=== PATIENT | female | born 1945 | race Caucasian/White ===

== ENCOUNTER 2024-02-22 09:03 | Outpatient (RCR) | payer SELFPAY | END 2024-03-16 23:59 | disposition home or self-care (01) | LOC: HEMC 09:03 | PROVIDERS: Visit Provider Internal Medicine Hematology & Oncology | DX: I82.409 Acute embolism and thrombosis of unspecified deep veins of unspecified lower extremity (principal); Z79.01 Long term (current) use of anticoagulants; K21.9 Gastro-esophageal reflux disease without esophagitis | CPT/HCPCS: 36415; 81241; 85210; G0463 ==

== ENCOUNTER 2024-06-18 07:23 | Outpatient (OUT) | payer MEDICARE, SELFPAY ==
--- OUTSIDE RECORDS SUMMARY | 2024-06-18 07:27 | XMS_ITS | CCD ---
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 Name Role Phone Caio Brown Unavailable GISEL, DR HARINI Lee Admitting Unavailable WEST, DR HARINI Lee Attending Unavailable WEST, DR HARINI Lee Consulting Unavailable BREWSTER, DR IRIS Britt Primary Care Unavailable [facility], FARNAZ Malave Attending Unavailable HIGHLANDER, FARNAZ Malave Admitting Unavailable RUSLAN ., FRANK RUGGIERO Attending Unavailable RUSLAN ., FRANK URGGIERO Admitting Unavailable BREWSTER, DR IRIS Britt Primary Care Unavailable WEST, DR HARINI Lee Admitting Unavailable WEST, DR HARINI Lee Attending Unavailable WEST, DR HARINI Lee Consulting Unavailable WEST, DR HARINI Lee Consulting Unavailable BREWSTER, DR IRIS Britt Primary Care Unavailable WEST, DR HARINI Lee Attending Unavailable WEST, DR HARINI Lee Admitting Unavailable WEST, DR HARINI Lee Admitting Unavailable WEST, DR HARINI Lee Attending Unavailable WEST, DR HARINI Lee Consulting Unavailable ZIEBER, DR ASHISH Vega Consulting Unavailable BREWSTER, DR IRIS Britt Primary Care Unavailable HIGHLANDER, FARNAZ Maalve Attending Unavailable HIGHLANDER, FARNAZ Malave Admitting Unavailable WEST, DR HARINI Lee Admitting Unavailable WEST, DR HARINI Lee Attending Unavailable WEST, DR HARINI Lee Consulting Unavailable ZIEBER, DR ASHISH Vega Consulting Unavailable BREWSTER, DR IRIS Britt Attending Unavailable BREWSTER, DR IRIS Britt Admitting Unavailable WEST, DR HARINI Lee Consulting Unavailable BREWSTER, DR IRIS Britt Consulting Unavailable WEST, DR HARINI Lee Consulting Unavailable WEST, DR HARINI Lee Attending Unavailable WEST, DR HARINI Lee Admitting Unavailable WEST, DR HARINI Lee Consulting Unavailable WEST, DR HARINI Lee Attending Unavailable WEST, DR HARINI Lee Admitting Unavailable WEST, DR HARINI Lee Consulting Unavailable WEST, DR HARINI Lee Attending Unavailable WEST, DR HARINI Lee Admitting Unavailable WEST, DR HARINI Lee Admitting Unavailable WEST, DR HARINI Lee Attending Unavailable WEST, DR HARINI Lee Consulting Unavailable WEST, DR HARINI Lee Admitting Unavailable WEST, DR HARINI Lee Attending Unavailable WEST, DR HARINI Lee Consulting Unavailable WEST, DR HARINI Lee Admitting Unavailable WEST, DR HARINI Lee Attending Unavailable WEST, DR HARINI Lee Consulting Unavailable WEST, DR HARINI Lee Admitting Unavailable WEST, DR HARINI Lee Attending Unavailable WEST, DR HARINI Lee Consulting Unavailable NICOLAEB, DR ASHISH Vega Consulting Unavailable WEST, DR HARINI Lee Consulting Unavailable BREWSTER, DR IRIS Britt Primary Care Unavailable WEST, DR HARINI Lee Attending Unavailable WEST, DR HARINI Lee Admitting Unavailable ZIEBCONNIE, DR ASHISH Vega Consulting Unavailable BREWSTER, DR IRIS Britt Admitting Unavailable BREWSTER, DR IRIS Britt Attending Unavailable WEST, DR HARINI Lee Consulting Unavailable BREWSTER, DR IRIS Britt Consulting Unavailable ZIEBER, DR ASHISH Vega Consulting Unavailable BREWSTER, DR IRIS Britt Primary Care Unavailable BREWSTER, DR IRIS Britt Attending Unavailable BREWSTER, DR IRIS Britt Admitting Unavailable BREWSTER, DR IRIS Britt Consulting Unavailable [facility] FARNAZ Malave Consulting Unavailable BREWSTER, DR IRIS Britt Primary Care Unavailable [facility], FARNAZ Malave Attending Unavailable [facility] FAR[facility] Malave Admitting Unavailable WEST, DR HARINI Lee Admitting Unavailable WEST, DR HARINI Lee Attending Unavailable WEST, DR HARINI Lee Consulting Unavailable [facility], DR TADEO Gonzalez Consulting Unavailable BREWSTER, DR IRIS Britt Primary Care Unavailable [facility], FARNAZ Malave Attending Unavailable [facility], FARNAZ Malave Admitting Unavailable Brewster, Iris Unavailable Braxton Griffin Unavailable PRASHANTH COOMBS Attending Unavailable Iris Brewster MD Primary Care Provider Jay ODDonavan Unavailable Allergies Allergy Classification Reported Allergen(s) Allergy Type Date of Onset Reaction(s) Facility (1 source) patient allergy list reviewed by nurse or physicia Propensity to adverse reactions 4 Comment:Done Procyrion Other (1 source) Allergies Reconciled Propensity to adverse reactions Unknown Procyrion Other Medications Current Medications Medication Drug Class(es) Dates Sig (Normalized) Sig (Original) acetaminophen 500 mg oral capsule (4 sources) take 1 capsule by mouth every six hours Acetaminophen 500 MG 1 capsule as needed Orally every 6 hrs Active aspirin 81 mg oral tablet (1 source) Platelet Aggregation Inhibitor, Nonsteroidal Anti-inflammatory Drug Start: 06-21-2022 Aspir-Low 81MG Aspir-Low( 81MG Oral as needed ) Active -Hx Entry Oral as needed for 0 *Pick strength-form from [employer] for eRX* Jun, Active ketorolac tromethamine 5 mg/ml ophthalmic solution (1 source) Nonsteroidal Anti-inflammatory Drug, Cyclooxygenase Inhibitor Start: 05-31-2024 End: 06-30-2024 take 1 drop(s) into the eye(s) in the morning ketorolac (Acular) 0.5 % ophthalmic solution Indications: Age-related nuclear cataract of both eyes Administer 1 drop into affected eye(s) in the morning and 1 drop before bedtime. 5 mL 1 05/31/2024 06/30/2024 Active omeprazole 20 mg delayed release oral capsule (14 sources) Proton Pump Inhibitor Start: 05-14-2024 take 1 capsule by mouth once daily omeprazole (PriLOSEC) [address] capsule Take 20 mg by mouth Daily 05/14/2024 Active Start: 02-14-2024 take 20 mg by mouth once daily Omeprazole Active 20 MG PO Daily February 14, 2024 12:00am Start: 10-30-2023 End: 02-14-2024 Omeprazole Discontinued 0 .R OUTE .COMPLEX February 14, 2024 12:20pm February 14, 2024 12:40pm TAKE 1 CAPSULE BY MOUTH EVERY DAY 30 MINUTES BEFORE MORNING MEAL FOR 90 DAYS Start: 10-30-2023 End: 10-30-2023 take 40 mg by mouth once daily Omeprazole Discontinued 40 MG PO Daily October 30, 2023 12:00am October 30, 2023 12:07pm Start: 07-12-2022 take 1 capsule by [facility] once daily Omeprazole 40 MG omeprazole 40mg, 1 (one) Capsul Capsu Capsule daily # 90, 07/12/2022, No Refill. Active Oral daily for 0 Jun, Active prednisoLONE acetate 10 mg/ml ophthalmic suspension (1 source) Corticosteroid Start: 05-31-2024 End: 06-14-2024 prednisoLONE acetate (Pred-Forte) 1 % ophthalmic suspension Indications: Age-related nuclear cataract of both eyes Administer 1 drop into affected eye(s) in the morning and 1 drop at noon and 1 drop in the evening and 1 drop before bedtime. Do all this for 14 days. 5 mL 1 05/31/2024 06/14/2024 Active predniSONE 20 mg oral tablet (1 source) Start: 06-08-2022 take 1 tablet by mouth once daily Prednisone 20 MG predniSONE 20mg, 1 (one) Tablet Tablet Tablet daily # 5, 06/08/2022, No Refill. Active Oral daily for 0 May, Active Completed/Discontinued Medications Medication Drug Class(es) Dates Sig (Normalized) Sig (Original) apixaban 5 mg oral tablet (8 sources) Factor Xa Inhibitor Start: 02-26-2024 End: 02-26-2024 take 1 tablet by mouth twice daily Apixaban (Eliquis) 5 mg tablet Discontinued 0 .ROUTE .COMPLEX 180 February 26, 2024 11:43am February 26, 2024 4:21pm TAKE 1 TABLET BY MOUTH TWICE A DAY FOR 90 DAYS Start: 2024 End: 02-26-2024 take 1 tablet by mouth twice daily Apixaban (Eliquis) 5 mg tablet Discontinued 1 TAB PO Twice daily 2024 12:00am February 26, 2024 11:43am [employer] tablet Orally Twice a day; Note: Source Status: Refill; Refills: 4; Qty: 180 Tablet; Provider: Suzanne Britt Start: 06-08-2022 take 1 tablet by korey th twice daily Eliquis 5mg Eliquis 5mg, 1 (one) Tablet Tablet Tablet T Tablet two times daily # 60, 06/08/2022, Ref. x4. Active oral two times daily for 0 *Pick strength-form from [employer] for eRX* May, Active ibuprofen 200 mg oral tablet (6 sources) Nonsteroidal Anti-inflammatory Drug Start: 2024 End: 02-14-2024 take 200 mg by mouth every six hours Ibuprofen Discontinued 200 MG PO Every 6 hours 2024 12:00am February 14, 2024 12:11pm Ibuprofen Active ofloxacin 3 mg/ml ophthalmic solution (1 source) Quinolone Antimicrobial Start: 05-31-2024 End: 06-01-2024 take 1 drop(s) into the eye(s) five times daily ofloxacin (Ocuflox) 0.3 % ophthalmic solution Indications: Age-related nuclear cataract of both eyes Administer 1 drop into affected eye(s) 5 (five) times a day for 1 day Starting 1 day before surgery, continue after surgery as directed 5 mL 1 05/31/2024 06/01/2024 triamcinolone acetonide 40 mg/ml injectable suspension (4 sources) Corticosteroid Start: 06-27-2022 Kenalog-40 Jun, 40 mg Start: 06-27-2022 Problems Active Problems Problem Classification Problem Date Documented Da te Episodic/Chronic Acquired foot deformities (1 source) Flat foot [pes planus] (acquired), right foot; Translations: [FLAT FOOT PES PLANUS ACQ RT FOOT] Onset: 3 Episodic Allergic reactions (1 source) Allergic contact dermatitis due to plants, except food; Translations: [Allergic contact dermatitis due to plants, except food] Episodic Cataract (3 sources) Bilateral age-related nuclear cataracts; Translations: [Age-related nuclear cataract, bilateral] Onset: 4 05-31-2024 Chronic Chronic ulcer of skin (6 sources) Non-pressure chronic ulcer of right ankle with fat layer exposed; Translations: [Non-pressure chronic ulcer of unspecified part of right lower leg limited to breakdown of skin] Onset: 3 Chronic Esophageal disorders (5 sources) Gastro-esophageal reflux disease without esophagitis; Translations: [Gastroesophageal reflux disease without esophagitis] Onset: 4 02-14-2024 Chronic Osteoarthritis (5 sources) Osteoarthritis of left knee joint; Translations: [Unilateral primary osteoarthritis, left knee] Chronic Other bone disease and musculoskeletal deformities (1 source) Disorder of bone, unspecified; Translations: [DISORDER OF BONE UNSPECIFIED] Onset: 3 Episodic Other circulatory disease (1 source) Elevated blood-pressure reading without diagnosis of hypertension; Translations: [Elevated blood-pressure reading, without diagnosis of hypertension] Episodic Other connective tissue disease (5 sources) Pain in right leg; Translations: [PAIN IN RIGHT LEG] Onset: 2 Episodic Other connective tissue disease (1 source) Pain in right lower limb; Translations: [Pain in right leg] Episodic Other nervous system disorders (1 source) Paresthesia of skin; Translations: [PARESTHESIA OF SKIN] Onset: 3 Episodic Other nervous system disorders (1 source) Paresthesia; Translations: [Paresthesia of skin] Episodic Other nervous system disorders (1 source) Altered sensation of skin; Translations: [Disturbance of skin sensation] Episodic Other non-traumatic joint disorders (1 source) Other specified arthritis, unspecified site; Translations: [OTHER SPECIFIED ARTHRITIS UNS SITE] Onset: 3 Chronic Other non-traumatic joint disorders (4 sources) Pain in left knee; Translations: [PAIN IN LEFT KNEE] Onset: 2 Episodic Other non-traumatic joint disorders (2 sources) Arthralgia of the lower leg; Translations: [Pain in right knee] Onset: 5 Episodic Peripheral and visceral atherosclerosis (5 sources) Peripheral vascular disease, unspecified; Translations: [PERIPHERAL VASCULAR DISEASE UNS] Onset: 3 Chronic Phlebitis; thrombophlebitis and thromboembolism (15 sources) Acute embolism and thrombosis of unspecified deep veins of right lower extremity; Translations: [Phlebitis and thrombophlebitis of superficial vessels of right lower extremity] Onset: 2 Episodic Residual codes; unclassified (1 source) Tobacco user; Translations: [Tobacco use] Episodic Rheumatoid arthritis and related disease (1 source) Rheumatoid arthritis, unspecified; Translations: [RHEUMATOID ARTHRITIS UNSPECIFIED] Onset: 3 Chronic Unclassified (1 source) Acute embolism and thrombosis of right calf muscular vein; Translations: [ACUTE EMBO AND THROMB RT CALF MUSC VN] Onset: 2 Varicose veins of lower extremity (9 sources) Asymptomatic varicose veins of unspecified lower extremity; Translations: [Varicose veins of bilateral lower extremities with pain] Onset: 4 Episodic Past or Other Problems Problem Classification Problem Date Documented Da te Episodic/Chronic Malaise and fatigue (1 source) Fatigue; Translations: [Other fatigue] Onset: 01-01-2018 Episodic Other aftercare (5 sources) Encounter for surgical aftercare following surgery on the circulatory system; Translations: [ENC SURG AFTRCARE FLW SURG CIRC SYS] Onset: 02-22-2022 Episodic Other bone disease and musculoskeletal deformities (1 source) Bone density finding; Translations: [Other specified disorders of bone density and structure, unspecified site] Onset: 10-22-2013 Episodic Other screening for suspected conditions (not mental disorders or infectious disease) (1 source) Mammography abnormal; Translations: [Unspecified abnormal mammogram] Onset: 09-16-2015 Episodic Other skin disorders (1 source) Disorder of skin and/or subcutaneous tissue; Translations: [Unspecified disorder of skin and subcutaneous tissue] Onset: 01-01-2018 Episodic Other skin disorders (1 source) Asteatosis cutis; Translations: [Xerosis cutis] Onset: 01-01-2018 Episodic Other skin disorders (1 source) Actinic keratosis; Translations: [Actinic keratosis] Onset: 01-01-2018 Episodic Other upper respiratory infections (1 source) Acute maxillary sinusitis; Translations: [Acute recurrent maxillary sinusitis] Onset: 12-06-2018 Episodic Results Test Name Value Interpretation Reference Range Facility US Eye+Orbit - bilateralon 1 07-31-2023 Diagnosis: Cataract both eyes (OU) Testing Indication: Performed for preop measurements in the determination of an intraocular lens (IOL) for both eyes (OU) Test Reliability: Good quality both eyes (OU) Interpretation: Good measurements for intraocular lens (IOL) calculation purposes. Calculation made for both eyes (OU). [facility] Radiology Study observation (narrative) [facility] VC CONSULT FOLLOWUPon 2021 VC CONSULT FOLLOWUP Patient: AGATA NG Exam Date: 06/21/2022 : 1945 Gender:F Ordering : DR HARINI BATRES M.D. Admission #: [id number] Family : Order #: [id number] CLICK HERE TO VIEW EXAM RADIOLOGY REPORT PROCEDURE: VEIN CENTER CONSULTATION FOLLOWUP VEIN CENTER - OFFICE VISIT FOLLOW UP COMPARISON: VC CONSULT FOLLOWUP, 05/31/2022. VC CONSULT FOLLOWUP, 05/10/2022. PROGRESS NOTES: The patient reports no significant pain following micro foam chemical ablation of the right leg but does complain of a developing wound along the medial right ankle and lateral right distal lower leg which started approximately 2 weeks ago. The patient has worn her compression stocking. The patient has followed our recommendations to walk 20-30 minutes once or twice per day since the procedure. Physical exam demonstrates multiple scattered thrombosed varicose veins. Extensive reticular and spider veins. There is a 3 x 1 cm ulceration identified in the medial right ankle with a larger 4 cm area of erythema. There is complete eschar covering the ulceration. There is a 2nd smaller 1 cm ulcer identified along the distal lateral right lower leg. These lesions are not warm to the touch and do not appear to be infected Review of the ultrasound performed the same day demonstrates occlusive thrombus extending throughout the treated no deep vein thrombus. No significant residual incompetent varicose veins. The patient expressed a desire to proceed with treatment of reticular and spider veins. I discussed the ulcerations with the patient. These likely are the result of micro foam chemical ablation. Our office set up a follow-up with the wound clinic which we will follow these wounds until they are fully healed. We will defer her treatments for several months as she continues to heal. The patient was asked to call our office with any difficulties or evidence of infection. IMPRESSION: 1. Successful ablation of incompetent right leg varicose veins 2. Persistent bilateral reticular and spider veins 3. Two active ulcers on the right leg likely related to micro foam chemical ablation PLAN: 1. Follow-up with wound clinic for ulcers 2. Injection sclerotherapy of reticular and spider veins once ulcers are successfully healed Nurse notes, history and physical were reviewed and confirmed, see attached forms. The nurse was present throughout the physical exam and consultation Dictated by: Harini Batres MD on 06/21/2022 at 14:23 Approved by: Hraini Batres MD on 06/21/2022 at 14:[address] [facility] VC EXT VENOUS RT LIMITEDon 1 08-22-2021 VC EXT VENOUS RT LIMITED Patient: AGATA NG Exam Date: 06/21/2022 : 1945 Gender:F Ordering : DR HARINI BATRES M.D. Admission #: [id number] Family : Order #: [id number] CLICK HERE TO VIEW EXAM RADIOLOGY REPORT PROCEDURE: VEIN CENTER EXTREMITY VENOUS RIGHT LIMITED COMPARISON: VC COMP CONSULTATION, 01/26/2022. VC EXT VENOUS RT LIMITED, 05/31/2022. VC EXT VENOUS RT LIMITED, 05/10/2022. INDICATIONS: Phlebitis of superficial veins of lower extremity TECHNIQUE: Lower extremity baez scale and Duplex Doppler evaluation of the deep venous system from the inguinal ligament through the calf veins. FINDINGS: REGION: Right lower extremity. THROMBI: Negative for DVT. Varithena induced thrombus visualized at dist/ant thigh and mid/med calf. COMPRESSIBILITY: Non-compressible segments corresponding to thrombus. FLOW: Absent flow corresponding to thrombus *Exam performed in accordance with [facility] practice guidelines- Peripheral venous ultrasound, October 10, 2009. CONCLUSION: Post ablation occlusion of treated right leg incompetent varicose veins Dictated by: Harini Batres MD on 06/21/2022 at 14:14 Approved by: Harini Batres MD on 06/21/2022 at 14:[address] [facility] VC INJ FOAM SCLERO W US MLTI on 06-14-2022 VC INJ FOAM SCLERO W US MLTI Patient: AGATA NG Exam Date: 06/14/2022 : 1945 Gender:F Ordering : DR HARINI BATRES M.D. Admission #: [id number] Family : Order #: [id number] CLICK HERE TO VIEW EXAM RADIOLOGY REPORT PROCEDURE: VEIN CENTER INJECTION FOAM SCLEROSING SOLUTION WITH ULTRASOUND MULTIPLE VEINS COMPARISON: VC INJ FOAM SCLERO W US MLTI, 05/24/2022. Pre-operative Diagnosis: CEAP class C4a venous insufficiency with pain, tenderness, edema and incompetent branch saphenous vein, chronic venous insufficiency right leg secondary to venous incompetence Post-operative Diagnosis: CEAP class C4a venous insufficiency with pain, tenderness, edema and incompetent branch saphenous vein, chronic venous insufficiency right leg secondary to venous incompetence Procedure Performed: 1. Ultrasound-guided microfoam chemical ablation with Varithena(r) 2. Intraoperative ultrasound guidance Physician: Ashish Desir M.D. Anesthesia: None. Indications for Procedure: 76 year old female. Symptoms including lower extremity swelling, pain, dilated varicose veins, and thrombophlebitis for many years despite conservative medical therapy including medical compression stockings, exercise and analgesics. Prior procedures include: Endovenous laser ablation and microfoam chemical ablation. Multiple incompetent varicosities of the right leg. Duplex scan showed reflux and enlarged diameters up to 5 mm. The patient has undergone informed consent including management options where the complications of infection, bleeding, pain, and skin injury were discussed. Particular attention was spent discussing thrombus extension and deep vein thrombosis as well as the possibility of pulmonary embolus and treatment with oral or injectable blood thinners. Procedure: The patient walked to the procedure room. All applicable staff donned appropriate apparel. A procedure timeout was performed to confirm correct patient, correct extremity, correct procedure, and correct room set-up including presence of all applicable supplies, devices, and drugs. A duplex ultrasound, performed by myself confirmed the location and incompetence of branch saphenous varicosities and their course was marked on the skin together with the dilated tributaries. The extent of treatment of the veins and the associated varicosities was determined through ultrasound mapping. The skin was prepped and then punctured with a butterfly needle and advanced under ultrasound guidance. The Varithena(r) canister was activated and the canister was primed and purged as required in the instructions for use. Varithena(r) was drawn into a sterile syringe. Varithena(r) was slowly administered at 0.5-1.0 cc/second with close observation by ultrasound of its course in the vessels. Total volume utilized was: 10 mL (6 mL within a 5 mm incompetent varicosity of the right anterior distal upper leg; 4 Brie within a 4 mm incompetent varicosity of the right mid medial calf). Following administration of Varithena(r), the leg was elevated and the patient was asked to repeatedly dorsiflex the ankle to limit flow of Varithena(r) into perforating veins. Once appropriate spasm had been confirmed in the treated veins, the vascular catheter was removed from the leg and light pressure was applied over the puncture site for hemostasis The common femoral and deep superficial veins were then evaluated for flow and compressibility prior to dressing placement. The lower extremity was kept elevated at 45 degrees above the horizontal and cording material was applied over the saphenous segments and tributaries to allow for eccentric compression over the target vessels including the targeted saphenous vein(s). A multilayer dressing was applied consisting of foam pads, coban and thigh-high 20-30 mm Hg compression elastic support hose were placed on the patient. The leg was lowered only after compression had been applied and the patient was immediately ambulatory. The patient ambulated 10 minutes under supervision and was without apparent concerns at time of release Post-care instructions include advising patient to keep post-treatment bandages in place and dry for 48 hours, avoid extended periods of inactivity, avoid heavy exercise for one week, wear compression stockings on the treated leg continuously for two weeks, to walk daily for 10 minutes over the next month. The patient was instructed to take an anti-inflammatory medicine as needed and to follow up for color duplex scan of the Saphenous veins, the treated branch saphenous varicosities, the adjacent deep veins, and additional treatment within 7 days. PERSONNEL: Chato Jalloh R.N. Dictated by: Ashish Desir M.D. on 06/14/2022 at 15:49 Approved by: Ashish Desir M.D. on 06/14/2022 at 15:[address] [facility] VC CONSULT FOLLOWUPon 2021 VC CONSULT FOLLOWUP Patient: AGATA NG Exam Date: 05/31/2022 : 1945 Gender:F Ordering : DR HARINI BATRES M.D. Admission #: [id number] Family : Order #: [id number] CLICK HERE TO VIEW EXAM RADIOLOGY REPORT PROCEDURE: VEIN CENTER CONSULTATION FOLLOWUP VEIN CENTER - OFFICE VISIT FOLLOW UP COMPARISON: VC CONSULT FOLLOWUP, 05/10/2022. VC CONSULT FOLLOWUP, 04/22/2022. PROGRESS NOTES: The patient reports some mild discomfort of the right leg following micro foam chemical ablation. The patient did not require oral analgesics. The patient has worn her compression stockings. The patient does complain of left knee pain episodes of rapid onset left knee swelling, exacerbated by activity. The patient has followed our recommendations to walk 20-30 minutes once or twice per day since the procedure. The patient reports continued improvement in her initial presenting symptoms. Physical exam demonstrates multiple thrombosed varicose veins with residual patent varicose, reticular and spider veins. No areas of erythema or warmth to suggest cellulitis or thrombophlebitis. No active ulceration Review of the ultrasound performed the same day demonstrates occlusive thrombus extending throughout the treated right leg varicose veins with no deep vein thrombus. Residual incompetent varicose veins remain measuring up to 5 mm in diameter. The patient expressed a desire to proceed with treatment of incompetent right leg varicose veins. IMPRESSION: 1. Successful ablation of incompetent right leg varicose veins 2. Persistent incompetent bilateral varicose veins PLAN: Micro foam chemical ablation right leg Nurse notes, history and physical were reviewed and confirmed, see attached forms. The nurse was present throughout the physical exam and consultation Dictated by: Harini Batres MD on 05/31/2022 at 10:43 Approved by: Harini Batres MD on 05/31/2022 at 10:[address] [facility] VC EXT VENOUS RT LIMITEDon 1 07-31-2021 VC EXT VENOUS RT LIMITED Patient: AGATA NG Exam Date: 05/31/2022 : 1945 Gender:F Ordering : DR HARINI BATRES M.D. Admission #: [id number] Family : Order #: [id number] CLICK HERE TO VIEW EXAM RADIOLOGY REPORT PROCEDURE: VEIN CENTER EXTREMITY VENOUS RIGHT LIMITED COMPARISON: VC EXT VENOUS RT LIMITED, 05/10/2022. VC EXT VENOUS RT LIMITED, 04/04/2022. INDICATIONS: Phlebitis of superficial veins of lower extremity I80.01 TECHNIQUE: Lower extremity baez scale and Duplex Doppler evaluation of the deep venous system from the inguinal ligament through the calf veins. FINDINGS: REGION: Right lower extremity. THROMBI: Negative for DVT. Varithena induced thrombus visualized at dist/ant calf, medial ankle, lateral ankle, and dist/med thigh. COMPRESSIBILITY: Non-compressible segments. FLOW: Areas of no flow. OTHER: Patent varicose vein prox med calf 2.9mm with 0.7s reflux. Patent varicose vein mid/ant thigh 5.0mm with 0.8s reflux. *Exam performed in accordance with [facility] practice guidelines- Peripheral venous ultrasound, October 10, 2009. CONCLUSION: Post ablation occlusion of treated right leg varicose veins with residual incompetent varicose veins measuring up to 5 mm Dictated by: Harini Batres MD on 05/31/2022 at 10:20 Approved by: Harini Batres MD on 05/31/2022 at 10:[address] [facility] VC INJ FOAM SCLERO W US MLTI on 05-24-2022 VC INJ FOAM SCLERO W US MLTI Patient: AGATA NG Exam Date: 05/24/2022 : 1945 Gender:F Ordering : DR HARINI BATRES M.D. Admission #: [id number] Family : Order #: [id number] CLICK HERE TO VIEW EXAM RADIOLOGY REPORT PROCEDURE: VEIN CENTER INJECTION FOAM SCLEROSING SOLUTION WITH ULTRASOUND MULTIPLE VEINS COMPARISON: VC COMP CONSULTATION, 01/26/2022. VC INJ FOAM SCLERO W US MLTI, 05/03/2022. VC INJ FOAM SCLERO W US MLTI, 04/19/2022. Pre-operative Diagnosis: CEAP class C4a venous insufficiency with pain, tenderness, edema and incompetent right great saphenous vein and branch saphenous tributaries/varicose vein, chronic venous insufficiency right leg secondary to venous incompetence Post-operative Diagnosis: CEAP class C4a venous insufficiency with pain, tenderness, edema and incompetent right great saphenous vein and branch saphenous tributaries/varicose vein, chronic venous insufficiency right leg secondary to venous incompetence Procedure Performed: 1. Ultrasound-guided microfoam chemical ablation with Varithena(r) 2. Intraoperative ultrasound guidance Physician: Harini Batres M.D. Anesthesia: None Indications for Procedure: 76-year-old female with a 30 year history of lower extremity pain swelling and varicose veins with multiple episodes of thrombophlebitis. History of deep and superficial vein thrombus. The patient failed conservative medical therapy including medical compression stockings, exercise and analgesics. Prior procedures include intravenous laser ablation for Multiple incompetent varicosities of the right leg. Duplex scan showed reflux and enlarged diameters up to 5 mm. The patient underwent informed consent including management options where the complications of infection, bleeding, pain, and skin injury were discussed. Particular attention was spent discussing thrombus extension and deep vein thrombosis as well as the possibility of pulmonary embolus and treatment with oral or injectable blood thinners. Procedure: The patient walked to the procedure room. All applicable staff donned appropriate apparel. A procedure timeout was performed to confirm correct patient, correct extremity, correct procedure, and correct room set-up including presence of all applicable supplies, devices, and drugs. A duplex ultrasound, performed by myself confirmed the location and incompetence of right leg varicose veins and their course marked on the skin together with the dilated tributaries. The extent of treatment of the vein and the associated varicosities was determined through ultrasound mapping. The patient was placed on the operating room table. The limb was prepped. The skin was punctured with a butterfly needle through the skin with the venous access needle and advanced under ultrasound guidance. The target limb was positioned at 45 degrees of elevation in relation to the torso utilizing a foam pad. The Varithena(r) canister was previously activated and the canister was primed and purged as required in the instructions for use. The following injections were made: 4 mL aliquot of Varithena(r) was drawn into a sterile syringe. Injection into a 4 mm varicose vein distal anterior right lower leg 2 mL aliquot of Varithena(r) was drawn into a sterile syringe. Injection into a 3 mm varicose vein right lateral ankle 2 mL aliquot of Varithena(r) was drawn into a sterile syringe. Injection into a 3 mm varicose vein right medial ankle 5 mL aliquot of Varithena(r) was drawn into a sterile syringe. Injection into a 5 mm varicose vein distal anterior right thigh Varithena(r) was slowly administered at 0.5-1.0 cc/second with close observation by ultrasound of its course in the injected veins. A total volume of 13 mL of Varithena(r) was used. During administration of Varithena(r), the patient was asked to dorsiflex the ankle to limit flow of Varithena(r) into perforating veins. Once appropriate spasm had been confirmed in the treated veins, the vascular catheter was removed from the leg and light pressure was applied over the puncture site for hemostasis The common femoral and deep superficial veins were then evaluated for flow and compressibility prior to dressing placement. The lower extremity was kept elevated at 45 degrees above the horizontal and cording material was applied over the saphenous segments and tributaries to allow for eccentric compression over the target vessels including the targeted saphenous vein(s). A multilayer dressing was applied consisting of foam pads, coban and thigh-high 20-30 mm Hg compression elastic support hose were placed on the patient. The leg was lowered only after compression had been applied and the patient was immediately ambulatory. The patient ambulated 10 minutes under supervision and was without apparent concerns at time of release Post-care instructions include advising patient to keep post-treatment bandages in place and (more content not included)... Normal [facility] VC CONSULT FOLLOWUPon 2021 VC CONSULT FOLLOWUP Patient: AGATA NG Exam Date: 05/10/2022 : 1945 Gender:F Ordering : DR HARINI BATRES M.D. Admission #: [id number] Family : Order #: [id number] CLICK HERE TO VIEW EXAM RADIOLOGY REPORT PROCEDURE: VEIN CENTER CONSULTATION FOLLOWUP VEIN CENTER - OFFICE VISIT FOLLOW UP COMPARISON: VC CONSULT FOLLOWUP, 04/22/2022. VC CONSULT FOLLOWUP, 04/04/2022. PROGRESS NOTES: The patient reports mild discomfort of the right leg following micro foam chemical ablation. The patient did not require oral analgesics. The patient did wear her compression stockings. The patient does complain of left knee pain which started yesterday and has significantly improved in 20 hours but she did concern this was related to prior treatments. The patient has followed our recommendations to walk 20-30 minutes once or twice per day since the procedure. Physical exam demonstrates thrombosed varicose veins in both legs. Bilateral remaining varicose reticular and spider veins are observed left greater than right Review of the ultrasound performed the same day demonstrates occlusive thrombus extending throughout the treated right leg vein period no deep vein thrombus. The patient expressed a desire to proceed with treatment of persistent incompetent varicose veins with micro foam chemical ablation. IMPRESSION: 1. Successful ablation of left leg varicose veins 2. Bilateral incompetent varicose veins PLAN: Micro foam chemical ablation left leg Nurse notes, history and physical were reviewed and confirmed, see attached forms. The nurse was present throughout the physical exam and consultation Dictated by: Harini Batres MD on 05/10/2022 at 14:03 Approved by: Harini Batres MD on 05/10/2022 at 14:[address] [facility] VC EXT VENOUS RT LIMITEDon 1 VC EXT VENOUS RT LIMITED Patient: AGATA NG Exam Date: 05/10/2022 : 1945 Gender:F Ordering : DR HARINI BATRES M.D. Admission #: [id number] Family : Order #: [id number] CLICK HERE TO VIEW EXAM RADIOLOGY REPORT PROCEDURE: VEIN CENTER EXTREMITY VENOUS RIGHT LIMITED COMPARISON: VC EXT VENOUS RT LIMITED, 04/04/2022. VC EXT VENOUS RT LIMITED, 02/22/2022. INDICATIONS: Phlebitis of superficial veins of lower extremity I80.01 TECHNIQUE: Lower extremity baez scale and Duplex Doppler evaluation of the deep venous system from the inguinal ligament through the calf veins. FINDINGS: REGION: Right lower extremity. THROMBI: Negative for DVT. Varithena induced thrombus visualized at mid/med thigh. COMPRESSIBILITY: Non-compressible AND partially compressible segments. FLOW: Absent flow corresponding to thrombus OTHER: Patent varicose vein mid/med thigh 4.0cm with 0.6s reflux. Patent varicose vein med knee 4.2cm with 1.0s reflux. *Exam performed in accordance with [facility] practice guidelines- Peripheral venous ultrasound, October 10, 2009. CONCLUSION: Post ablation occlusion of right leg treated incompetent varicose veins Dictated by: Harini Batres MD on 05/10/2022 at 12:52 Approved by: Harini Batres MD on 05/10/2022 at 12:[address] [facility] VC INJ FOAM SCLERO W US MLTI on 05-03-2022 VC INJ FOAM SCLERO W US MLTI Patient: AGATA NG Exam Date: 05/03/2022 : 1945 Gender:F Ordering : DR HARINI BATRES M.D. Admission #: [id number] Family : Order #: [id number] CLICK HERE TO VIEW EXAM RADIOLOGY REPORT PROCEDURE: VEIN CENTER INJECTION FOAM SCLEROSING SOLUTION WITH ULTRASOUND MULTIPLE VEINS COMPARISON: VC VENOUS REFLUX NATO LMT, 01/26/2022. VC INJ FOAM SCLERO W US MLTI, 04/19/2022. Pre-operative Diagnosis: CEAP class C4a venous insufficiency with pain, tenderness, edema and incompetent branch saphenous vein, chronic venous insufficiency right leg secondary to venous incompetence Post-operative Diagnosis: CEAP class C4a venous insufficiency with pain, tenderness, edema and incompetent branch saphenous vein, chronic venous insufficiency right leg secondary to venous incompetence Procedure Performed: 1. Ultrasound-guided microfoam chemical ablation with Varithena(r) 2. Intraoperative ultrasound guidance Physician: Ashish Deisr M.D. Anesthesia: None. Indications for Procedure: 77 year old female. Symptoms including lower extremity pain, swelling, dilated veins for many years despite conservative medical therapy including medical compression stockings, exercise and analgesics. Prior procedures include: Endovenous laser ablation and microfoam chemical ablation. Incompetent varicosity of the right leg. Duplex scan showed reflux and enlarged diameters up to 5 mm. The patient has undergone informed consent including management options where the complications of infection, bleeding, pain, and skin injury were discussed. Particular attention was spent discussing thrombus extension and deep vein thrombosis as well as the possibility of pulmonary embolus and treatment with oral or injectable blood thinners. Procedure: The patient walked to the procedure room. All applicable staff donned appropriate apparel. A procedure timeout was performed to confirm correct patient, correct extremity, correct procedure, and correct room set-up including presence of all applicable supplies, devices, and drugs. A duplex ultrasound, performed by myself confirmed the location and incompetence of branch saphenous varicosities and their course was marked on the skin together with the dilated tributaries. The extent of treatment of the veins and the associated varicosities was determined through ultrasound mapping. The skin was prepped and then punctured with a butterfly needle and advanced under ultrasound guidance. The Varithena(r) canister was activated and the canister was primed and purged as required in the instructions for use. Varithena(r) was drawn into a sterile syringe. Varithena(r) was slowly administered at 0.5-1.0 cc/second with close observation by ultrasound of its course in the vessels. Total volume utilized was: 15 mL within a branch saphenous varicosity of the right mid thigh.. Following administration of Varithena(r), the leg was elevated and the patient was asked to repeatedly dorsiflex the ankle to limit flow of Varithena(r) into perforating veins. Once appropriate spasm had been confirmed in the treated veins, the vascular catheter was removed from the leg and light pressure was applied over the puncture site for hemostasis The common femoral and deep superficial veins were then evaluated for flow and compressibility prior to dressing placement. The lower extremity was kept elevated at 45 degrees above the horizontal and cording material was applied over the saphenous segments and tributaries to allow for eccentric compression over the target vessels including the targeted saphenous vein(s). A multilayer dressing was applied consisting of foam pads, coban and thigh-high 20-30 mm Hg compression elastic support hose were placed on the patient. The leg was lowered only after compression had been applied and the patient was immediately ambulatory. The patient ambulated 10 minutes under supervision and was without apparent concerns at time of release Post-care instructions include advising patient to keep post-treatment bandages in place and dry for 48 hours, avoid extended periods of inactivity, avoid heavy exercise for one week, wear compression stockings on the treated leg continuously for two weeks, to walk daily for 10 minutes over the next month. The patient was instructed to take an anti-inflammatory medicine as needed and to follow up for color duplex scan of the Saphenous veins, the treated branch saphenous varicosities, the adjacent deep veins, and additional treatment within 7 days. PERSONNEL: Tadeo Lundy Dictated by: Ashish Desir M.D. on 05/03/2022 at 12:44 Approved by: Ashish Desir M.D. on 05/03/2022 at 15:[address] [facility] VC CONSULT FOLLOWUPon 2021 VC CONSULT FOLLOWUP Patient: AGATA NG Exam Date: 04/22/2022 : 1945 Gender:F Ordering : DR HARINI BATRES M.D. Admission #: [id number] Family : Order #: [id number] CLICK HERE TO VIEW EXAM RADIOLOGY REPORT PROCEDURE: VEIN CENTER CONSULTATION FOLLOWUP VEIN CENTER - OFFICE VISIT FOLLOW UP COMPARISON: VC CONSULT FOLLOWUP, 04/04/2022. VC CONSULT FOLLOWUP, 03/16/2022. PROGRESS NOTES: The patient reports only mild discomfort following micro foam chemical ablation of left leg varicose veins. The patient did not require oral analgesics. The patient did wear her compression stocking. The patient has followed our recommendations to walk 20-30 minutes once or twice per day since the procedure. The patient reports significant improvement in her symptoms on the left leg less so on the right from her initial presenting exam. The patient is able to do more activities throughout the course the day without difficulty. Physical exam demonstrates scattered thrombosed varicose veins. Large varicose veins still identified in the right leg. No areas of erythema or warmth to suggest cellulitis or thrombophlebitis. No active ulceration. Review of the ultrasound performed the same day demonstrates occlusive thrombus extending throughout the treated left leg varicose veins. Residual incompetent right leg varicose veins up to 5 mm. The patient expressed a desire to proceed with treatment of right leg varicose veins with micro foam chemical ablation. IMPRESSION: 1. Successful ablation of left leg varicose veins 2. Persistent incompetent right leg varicose veins PLAN: Micro foam chemical ablation right leg Nurse notes, history and physical were reviewed and confirmed, see attached forms. The nurse was present throughout the physical exam and consultation Dictated by: Harini Batres MD on 04/22/2022 at 11:07 Approved by: Harini Batres MD on 04/22/2022 at 11:[address] [facility] VC EXT VENOUS LT LIMITEDon 1 VC EXT VENOUS LT LIMITED Patient: AGATA NG Exam Date: 04/22/2022 : 1945 Gender:F Ordering : DR HARINI BATRES M.D. Admission #: [id number] Family : Order #: [id number] CLICK HERE TO VIEW EXAM RADIOLOGY REPORT PROCEDURE: VEIN CENTER EXTREMITY VENOUS LEFT LIMITED COMPARISON: VC EXT VENOUS LT LIMITED, 03/16/2022. INDICATIONS: Phlebitis of superficial veins of lower extremity I80.02 TECHNIQUE: Lower extremity baez scale and Duplex Doppler evaluation of the deep venous system from the inguinal ligament through the calf veins. FINDINGS: REGION: Left lower extremity. THROMBI: Negative for DVT. Varithena induced thrombus visualized at distal GSV and dist/med/ant thigh. COMPRESSIBILITY: Noncompressibility corresponding to thrombus FLOW: Absent flow corresponding to thrombus *Exam performed in accordance with [facility] practice guidelines- Peripheral venous ultrasound, October 10, 2009. CONCLUSION: Post ablation occlusion of left leg varicose veins Dictated by: Harini Batres MD on 04/22/2022 at 10:52 Approved by: Harini Batres MD on 04/22/2022 at 10:[address] [facility] VC INJ FOAM SCLERO W US MLTI on 04-19-2022 VC INJ FOAM SCLERO W US MLTI Patient: AGATA NG Exam Date: 04/19/2022 : 1945 Gender:F Ordering : DR HARINI BATRES M.D. Admission #: [id number] Family : Order #: [id number] CLICK HERE TO VIEW EXAM RADIOLOGY REPORT PROCEDURE: VEIN CENTER INJECTION FOAM SCLEROSING SOLUTION WITH ULTRASOUND MULTIPLE VEINS COMPARISON: VC INJ FOAM SCLERO W US MLTI, 03/29/2022. Pre-operative Diagnosis: CEAP class C4a venous insufficiency with pain, tenderness, edema and incompetent left great saphenous vein and branch saphenous tributaries/varicose vein, chronic venous insufficiency left leg secondary to venous incompetence Post-operative Diagnosis: CEAP class C4a venous insufficiency with pain, tenderness, edema and incompetent left great saphenous vein and branch saphenous tributaries/varicose vein, chronic venous insufficiency left leg secondary to venous incompetence Procedure Performed: 1. Ultrasound-guided microfoam chemical ablation with Varithena(r) 2. Intraoperative ultrasound guidance Physician: Harini Batres M.D. Anesthesia: None Indications for Procedure: 77-year-old female who presents with a 30 year history of lower extremity pain swelling and varicose veins. The patient fell conservative medical therapy including medical compression stockings, exercise and analgesics. Prior procedures include intravenous laser ablation. Multiple incompetent varicosities of the left leg. Duplex scan showed reflux and enlarged diameters up to 5 mm. The patient underwent informed consent including management options where the complications of infection, bleeding, pain, and skin injury were discussed. Particular attention was spent discussing thrombus extension and deep vein thrombosis as well as the possibility of pulmonary embolus and treatment with oral or injectable blood thinners. Procedure: The patient walked to the procedure room. All applicable staff donned appropriate apparel. A procedure timeout was performed to confirm correct patient, correct extremity, correct procedure, and correct room set-up including presence of all applicable supplies, devices, and drugs. A duplex ultrasound, performed by myself confirmed the location and incompetence of varicose veins and their course marked on the skin together with the dilated tributaries. The extent of treatment of the vein and the associated varicosities was determined through ultrasound mapping. The patient was placed on the operating room table. The limb was prepped. The skin was punctured with a butterfly needle through the skin with the venous access needle and advanced under ultrasound guidance. The target limb was positioned at 45 degrees of elevation in relation to the torso utilizing a foam pad. The Varithena(r) canister was previous activated and the canister was primed and purged as required in the instructions for use. The following injections were made: 6 mL aliquot of Varithena(r) was drawn into a sterile syringe. Injection into incompetent distal great saphenous vein which measures 5 mm at the level of the ankle. Foam was visualized extending from the level the ankle to just below the knee with remainder of the great saphenous vein previously treated by intravenous laser ablation. 5 mL aliquot of Varithena(r) was drawn into a sterile syringe. Injection into 4 mm varicose vein distal anterior medial thigh. This was a branch of the great saphenous vein inserting of the level the upper thigh Varithena(r) was slowly administered at 0.5-1.0 cc/second with close observation by ultrasound of its course in the GSV and varicose veins. A total volume of 11 mL of Varithena(r) was used. During administration of Varithena(r), the patient was asked to dorsiflex the ankle to limit flow of Varithena(r) into perforating veins. Once appropriate spasm had been confirmed in the treated veins, the vascular catheter was removed from the leg and light pressure was applied over the puncture site for hemostasis The common femoral and deep superficial veins were then evaluated for flow and compressibility prior to dressing placement. The lower extremity was kept elevated at 45 degrees above the horizontal and cording material was applied over the saphenous segments and tributaries to allow for eccentric compression over the target vessels including the targeted saphenous vein(s). A multilayer dressing was applied consisting of foam pads, coban and thigh-high 20-30 mm Hg compression elastic support hose were placed on the patient. The leg was lowered only after compression had been applied and the patient was immediately ambulatory. The patient ambulated 10 minutes under supervision and was without apparent concerns at time of release Post-care instructions include advising patient to keep post-treatment bandages in place and dry for 48 hours, avoid extended periods of inactivity, avoid heavy exercise for one week, wear compression stockings (more content not included)... Normal [facility] VC CONSULT FOLLOWUPon 2021 VC CONSULT FOLLOWUP Patient: AGATA NG Exam Date: 04/04/2022 : 1945 Gender:F Ordering : DR HARINI BATRES M.D. Admission #: [id number] Family : Order #: [id number] CLICK HERE TO VIEW EXAM RADIOLOGY REPORT PROCEDURE: VEIN CENTER CONSULTATION FOLLOWUP VEIN CENTER - OFFICE VISIT FOLLOW UP COMPARISON: VC CONSULT FOLLOWUP, 03/16/2022. PROGRESS NOTES: The patient reports improvement in right leg symptoms of. There has been interval reduction in varicosities. The patient has followed our recommendations to walk 20-30 minutes once or twice per day since the procedure. Physical exam demonstrates decrease in visible superficial varicosities of the right leg. Persistent varicosities are identified along the legs bilaterally. Review of the ultrasound performed the same day demonstrates occlusive thrombus extending throughout the treated vein, see separate report, consistent with a successful ablation. No thrombus extending into or beyond the saphenofemoral junction. The patient expressed a desire to proceed with treatment of remaining incompetent branch saphenous varicosities. The patient was informed that treatment was a process and would require several procedures/sessions. IMPRESSION: 1. Successful ablation of incompetent branch saphenous varicosities. 2. Persistent incompetent branch saphenous veins and lower extremity symptoms PLAN: Microfoam chemical ablation of left leg branch saphenous varicosities. Nurse notes, history and physical were reviewed and confirmed, see attached forms. The nurse was present throughout the physical exam and consultation Dictated by: Ashish Desir M.D. on 04/04/2022 at 09:34 Approved by: Ashish Desir M.D. on 04/04/2022 at 09:36 [facility] VC EXT VENOUS RT LIMITEDon 0 04-04-2022 VC EXT VENOUS RT LIMITED Patient: AGATA NG Exam Date: 04/04/2022 : 1945 Gender:F Ordering : DR HARINI BATRES M.D. Admission #: [id number] Family : Order #: [id number] CLICK HERE TO VIEW EXAM RADIOLOGY REPORT PROCEDURE: VEIN CENTER EXTREMITY VENOUS RIGHT LIMITED COMPARISON: VC EXT VENOUS RT LIMITED, 02/22/2022. INDICATIONS: Phlebitis of superficial veins of lower extremity I80.01 TECHNIQUE: Lower extremity baez scale and Duplex Doppler evaluation of the deep venous system from the inguinal ligament through the calf veins. FINDINGS: REGION: Right lower extremity. THROMBI: Negative for DVT. Varithena induced thrombus visualized in all areas treated including distal GSV, prox/med calf, and dist/med thigh. COMPRESSIBILITY: Non-compressible segments. FLOW: Areas of no flow. OTHER: Patent varicose vein mid/med calf 3.6mm with 0.5s reflux. Patent varicose vein 5.2mm with 0.9s reflux. CONCLUSION: 1. Successful post ablation occlusion of treated branch saphenous varicosities. Dictated by: Ashish Desir M.D. on 04/04/2022 at 09:24 Approved by: Ashish Desir M.D. on 04/04/2022 at 09:33 [facility] VC INJ FOAM SCLERO W US MLTI on 03-29-2022 VC INJ FOAM SCLERO W US MLTI Patient: AGATA NG Exam Date: 03/29/2022 : 1945 Gender:F Ordering : DR HARINI BATRES M.D. Admission #: [id number] Family : Order #: [id number] CLICK HERE TO VIEW EXAM RADIOLOGY REPORT PROCEDURE: VEIN CENTER INJECTION FOAM SCLEROSING SOLUTION WITH ULTRASOUND MULTIPLE VEINS COMPARISON: None. Pre-operative Diagnosis: CEAP class C4a venous insufficiency with pain, tenderness, edema and incompetent right great saphenous vein and branch saphenous tributaries, chronic venous insufficiency right leg secondary to venous incompetence Post-operative Diagnosis: CEAP class C4a venous insufficiency with pain, tenderness, edema and incompetent right great saphenous vein and branch saphenous tributaries, chronic venous insufficiency right leg secondary to venous incompetence Procedure Performed: 1. Ultrasound-guided microfoam chemical ablation with Varithena(r) 2. Intraoperative ultrasound guidance Physician: Harini Batres M.D. Anesthesia: None Indications for Procedure: 76-year-old female who presents with a 30 year history of lower extremity pain swelling and varicose veins. The patient failed conservative medical therapy including medical compression stockings, exercise and analgesics. Prior procedures include intravenous laser ablation Multiple incompetent varicosities of the right leg. Duplex scan showed reflux and enlarged diameters up to 8 mm. The patient underwent informed consent including management options where the complications of infection, bleeding, pain, and skin injury were discussed. Particular attention was spent discussing thrombus extension and deep vein thrombosis as well as the possibility of pulmonary embolus and treatment with oral or injectable blood thinners. Procedure: The patient walked to the procedure room. All applicable staff donned appropriate apparel. A procedure timeout was performed to confirm correct patient, correct extremity, correct procedure, and correct room set-up including presence of all applicable supplies, devices, and drugs. A duplex ultrasound, performed by myself confirmed the location and incompetence of right leg varicose veins and their course marked on the skin together with the dilated tributaries. The extent of treatment of the vein and the associated varicosities was determined through ultrasound mapping. The patient was placed on the operating room table. The limb was prepped. The skin was punctured with a butterfly needle through the skin with the venous access needle and advanced under ultrasound guidance. The target limb was positioned at 45 degrees of elevation in relation to the torso. The Varithena(r) canister was previously activated and the canister was primed and purged as required in the instructions for use. The following injections were made: 5 mL aliquot of Varithena(r) was drawn into a sterile syringe. Injection into a patent distal 5 mm incompetent right great saphenous vein at the level of the ankle. Incompetent quality analyst vein in the mid calf was occluded with manual pressure 8 mL aliquot of Varithena(r) was drawn into a sterile syringe. Injection into 8 mm varicose vein proximal medial lower leg below the knee, this was a tributary of the great saphenous vein inserting in the upper thigh 3 mL aliquot of Varithena(r) was drawn into a sterile syringe. Injection into an 8 mm varicose vein distal medial thigh, this is a tributary of the great saphenous vein inserting in the upper thigh. Varithena(r) was slowly administered at 0.5-1.0 cc/second with close observation by ultrasound of its course in the GSV and tributaries. A total volume of 15 mL of Varithena(r) was used. During administration of Varithena(r), the patient was asked to dorsiflex the ankle to limit flow of Varithena(r) into perforating veins. Once appropriate spasm had been confirmed in the treated veins, the vascular catheter was removed from the leg and light pressure was applied over the puncture site for hemostasis The common femoral and deep superficial veins were then evaluated for flow and compressibility prior to dressing placement. The lower extremity was kept elevated at 45 degrees above the horizontal and cording material was applied over the saphenous segments and tributaries to allow for eccentric compression over the target vessels including the targeted saphenous vein(s). A multilayer dressing was applied consisting of foam pads, coban and thigh-high 20-30 mm Hg compression elastic support hose were placed on the patient. The leg was lowered only after compression had been applied and the patient was immediately ambulatory. The patient ambulated 10 minutes under supervision and was without apparent concerns at time of release Post-care instructions include advising patient to keep post-treatment bandages in place and dry for 48 hours, avoid extended periods of inactivity, avoid heavy exerci (more content not included)... Normal [facility] VC CONSULT FOLLOWUPon 2021 VC CONSULT FOLLOWUP Patient: AGATA NG Exam Date: 03/16/2022 : 1945 Gender:F Ordering : DR HARINI BATRES M.D. Admission #: [id number] Family : Order #: [id number] CLICK HERE TO VIEW EXAM RADIOLOGY REPORT PROCEDURE: VEIN CENTER CONSULTATION FOLLOWUP VEIN CENTER - OFFICE VISIT FOLLOW UP COMPARISON: VC CONSULT FOLLOWUP, 02/22/2022. PROGRESS NOTES: The patient reports no significant pain following intravenous laser ablation of the left great saphenous vein. The patient did not require oral analgesics. The patient did wear her compression stocking. The patient has followed our recommendations to walk 20-30 minutes once or twice per day since the procedure. The patient reports decrease in bilateral leg swelling after treatment. Physical exam demonstrates 2 small areas of bruising measuring 2-4 cm along the mid left medial thigh related to tumescent injection. Thrombosed great saphenous vein can be partially palpated. No areas of erythema or warmth to suggest cellulitis or thrombophlebitis. Review of the ultrasound performed the same day demonstrates occlusive thrombus extending throughout the treated left great saphenous vein with heat induced thrombus 3.4 cm from the saphenofemoral junction. The patient expressed a desire to proceed with treatment of incompetent varicose veins with micro foam chemical ablation. IMPRESSION: 1. Successful ablation of the left great saphenous vein 2. Persistent bilateral incompetent branch saphenous tributaries/varicose veins PLAN: Micro foam chemical ablation right leg Nurse notes, history and physical were reviewed and confirmed, see attached forms. The nurse was present throughout the physical exam and consultation Dictated by: Harini Batres MD on 03/16/2022 at 10:17 Approved by: Harini Batres MD on 03/16/2022 at 10:[address] [facility] VC EXT VENOUS LT LIMITEDon 0 03-16-2022 VC EXT VENOUS LT LIMITED Patient: AGATA NG Exam Date: 03/16/2022 : 1945 Gender:F Ordering : DR HARINI BATRES M.D. Admission #: [id number] Family : Order #: [id number] CLICK HERE TO VIEW EXAM RADIOLOGY REPORT PROCEDURE: VEIN CENTER EXTREMITY VENOUS LEFT LIMITED COMPARISON: None. INDICATIONS: Phlebitis and thrombophlebitis of superficial veins of left lower extremity I80.02 TECHNIQUE: Lower extremity baez scale and Duplex Doppler evaluation of the deep venous system from the inguinal ligament through the calf veins. FINDINGS: REGION: Left lower extremity. THROMBI: Negative for DVT. Heat induced thrombus in left GSV 3.4 cm from SFJ and extends to the proximal calf. COMPRESSIBILITY: Noncompressibility corresponding to thrombus FLOW: Absent flow corresponding to thrombus *Exam performed in accordance with [facility] practice guidelines- Peripheral venous ultrasound, October 10, 2009. CONCLUSION: Post ablation occlusion of the left great saphenous vein with heat induced thrombus 3.4 cm from the saphenofemoral junction Dictated by: Harini Batres MD on 03/16/2022 at 09:27 Approved by: Harini Batres MD on 03/16/2022 at 09:[address] [facility] VC ENDOVENOUS ABL 1ST V LTon 03-08-2022 VC ENDOVENOUS ABL 1ST V LT Patient: AGATA NG Exam Date: 03/08/2022 : 1945 Gender:F Ordering : DR HARINI BATRES M.D. Admission #: [id number] Family : Order #: [id number] CLICK HERE TO VIEW EXAM RADIOLOGY REPORT PROCEDURE: VEIN CENTER ENDOVENOUS ABLATION FIRST VEIN LEFT GREAT SAPHENOUS VEIN COMPARISON: None. INDICATIONS: Pain co-occurrent and due to varicose veins of bilateral legs I83.813 OPERATIVE REPORT: The risks and benefits of the procedure had been previously discussed, and were rediscussed at length. Informed written consent was obtained by me and Chato Jalloh assisted. Time out procedure was performed. The left lower extremity was prepared and draped in the usual sterile fashion to allow knee flexion in the sterile field. Duplex ultrasound probe was draped in a sterile cover, sterile transmission gel was used. Venous mapping was performed with the areas of dilation and large tributaries marked. The total length was 41 cm from the entry mid calf to 3 cm below the saphenofemoral junction. The diameter of the greater saphenous vein ranged from 5-11 mm. A 30 gauge needle and 1% buffered lidocaine was used to anesthetize the entry site. A 4 mm incision was made with a scalpel and the saphenous vein was entered percutaneously under direct ultrasound guidance with a micropuncture set, a single stick was successful in gaining access. A micro-guide wire was inserted and the needle removed. A micro-set including a dilator was inserted over the microwire and the needle and dilator were removed. A 0.018 guide wire was inserted through the micro-set and threaded through the saphenous vein to the saphenofemoral junction. The dilator was removed and an introducer sheath was inserted over the wire until the end of the sheath entered the saphenofemoral junction. The dilator and wire were removed and the 600 micron fiber was introduced and placed and positioned so that it extended beyond the sheath and was 3 cm peripheral to the saphenofemoral femoral junction. Final position of the fiber was determined by ultrasound guidance and duplex imaging. Tumescent anesthetic was delivered by ultrasound guidance. 200 cc of fluid was delivered along the entire course of the saphenous vein. The solution consisted of 500 cc of normal saline with 20mL of 1% lidocaine and 10 mL of sodium bicarbonate. A final positioning check was made. The energy source was turned on by means of the foot pedal and the fiber and sheath were withdrawn. The total number of Joules delivered was 1987. The laser was active for 248 seconds under continuous pulse, average laser use of 8 J. Laser start time 10:26 a.m. March 08, 2022. Laser stop time 10:30 a.m. March 08, 2022. A duplex ultrasound revealed compressibility and flow at the saphenofemoral junction immediately after the procedure. Hemostasis at the access site was achieved. The skin incision of the saphenous vein was closed with a 4 x 4. A compression stocking was applied. Postop instructions were given. A follow up appointment was recommended and scheduled. The patient tolerated the procedure well and was discharged in good condition. CONCLUSION: 1. Technically successful endovenous laser ablation of the left great saphenous vein. Dictated by: Harini Batres MD on 03/08/2022 at 10:33 Approved by: Harini Batres MD on 03/08/2022 at 10:[address] [facility] VC CONSULT FOLLOWUPon 2021 VC CONSULT FOLLOWUP Patient: AGATA NG Exam Date: 02/22/2022 : 1945 Gender:F Ordering : DR HARINI BATRES M.D. Admission #: [id number] Family : Order #: [id number] CLICK HERE TO VIEW EXAM RADIOLOGY REPORT PROCEDURE: VEIN CENTER CONSULTATION FOLLOWUP VEIN CENTER - OFFICE VISIT FOLLOW UP COMPARISON: None. PROGRESS NOTES: The patient reports mild discomfort following intravenous laser ablation of the right great saphenous vein. The patient developed a large bruise. The patient did not require oral analgesics. The patient did wear her compression stocking as directed. The patient has followed our recommendations to walk 20-30 minutes once or twice per day since the procedure. Physical exam demonstrates a large bruise occupying approximately 30% the anterior and medial thigh from upper to mid, likely related to her being on Eliquis. No areas of erythema or warmth to suggest cellulitis or thrombophlebitis. Thrombosed right great saphenous vein can be palpated. Multiple large patent varicose veins are observed Review of the ultrasound performed the same day demonstrates occlusive thrombus extending throughout the treated right great saphenous vein with heat induced thrombus 3.1 cm from the saphenofemoral junction. The patient expressed a desire to proceed with treatment of left great saphenous vein with intravenous laser ablation. IMPRESSION: 1. Successful ablation of the right great saphenous vein 2. Persistent incompetent left great saphenous vein PLAN: Intravenous laser ablation of the left great saphenous vein Nurse notes, history and physical were reviewed and confirmed, see attached forms. The nurse was present throughout the physical exam and consultation Dictated by: Harini Batres MD on 02/22/2022 at 10:05 Approved by: Harini Batres MD on 02/22/2022 at 10:[address] [facility] VC EXT VENOUS RT LIMITEDon 0 02-22-2022 VC EXT VENOUS RT LIMITED Patient: AGATA NG Exam Date: 02/22/2022 : 1945 Gender:F Ordering : DR HARINI BATRES M.D. Admission #: [id number] Family : Order #: [id number] CLICK HERE TO VIEW EXAM RADIOLOGY REPORT PROCEDURE: VEIN CENTER EXTREMITY VENOUS RIGHT LIMITED COMPARISON: None. INDICATIONS: Phlebitis and thrombophlebitis of superficial veins of right lower extremity I80.01 TECHNIQUE: Lower extremity baez scale and Duplex Doppler evaluation of the deep venous system from the inguinal ligament through the calf veins. FINDINGS: REGION: Right lower extremity. THROMBI: Negative for DVT. Heat induced thrombus arising 3.1cm from SFJ. The heat induced thrombus extends from groin to proximal calf. The GSV is patent at mid calf below the area of insertion.> COMPRESSIBILITY: Noncompressibility corresponding to thrombus FLOW: Absent flow corresponding to thrombus *Exam performed in accordance with [facility] practice guidelines- Peripheral venous ultrasound, October 10, 2009. CONCLUSION: Post ablation occlusion of the right great saphenous vein with heat induced thrombus 3.1 cm from the saphenofemoral junction Dictated by: Harini Batres MD on 02/22/2022 at 09:55 Approved by: Harini Batres MD on 02/22/2022 at 09:[address] [facility] VC ENDOVENOUS ABL 1ST V RTon 02-15-2022 VC ENDOVENOUS ABL 1ST V RT Patient: AGATA NG Exam Date: 02/15/2022 : 1945 Gender:F Ordering : DR HARINI BATRES M.D. Admission #: [id number] Family : Order #: [id number] CLICK HERE TO VIEW EXAM RADIOLOGY REPORT PROCEDURE: VEIN CENTER ENDOVENOUS ABLATION FIRST VEIN RIGHT COMPARISON: None. INDICATIONS: Pain co-occurrent and due to varicose veins of bilateral legs I83.813 OPERATIVE REPORT: The risks and benefits of the procedure had been previously discussed, and were rediscussed at length. Informed written consent was obtained by and Chato Jalloh assisted. Time out procedure was performed. The right lower extremity was prepared and draped in the usual sterile fashion to allow knee flexion in the sterile field. Duplex ultrasound probe was draped in a sterile cover, sterile transmission gel was used. Venous mapping was performed with the areas of dilation and large tributaries marked. The total length was 39 cm from the entry upper mid calf to 3 cm below the saphenofemoral junction. The diameter of the greater saphenous vein ranged from 12 mm. A 30 gauge needle and 1% buffered lidocaine was used to anesthetize the entry site. A 4 mm incision was made with a scalpel and the saphenous vein was entered percutaneously under direct ultrasound guidance with a micropuncture set, a single stick was successful in gaining access. A micro-guide wire was inserted and the needle removed. A micro-set including a dilator was inserted over the microwire and the needle and dilator were removed. A 0.018 guide wire was inserted through the micro-set and threaded through the saphenous vein to the saphenofemoral junction. The dilator was removed and an introducer sheath was inserted over the wire until the end of the sheath entered the saphenofemoral junction. The dilator and wire were removed and the 600 micron fiber was introduced and placed and positioned so that it extended beyond the sheath and was 3 cm peripheral to the saphenofemoral femoral junction. Final position of the fiber was determined by ultrasound guidance and duplex imaging. Tumescent anesthetic was delivered by ultrasound guidance. Two hundred seventy-five cc of fluid was delivered along the entire course of the saphenous vein. The solution consisted of 500 cc of normal saline with 20mL of 1% lidocaine and 10 mL of sodium bicarbonate. A final positioning check was made. The energy source was turned on by means of the foot pedal and the fiber and sheath were withdrawn. The total number of Joules delivered was 2310. The laser was active for 289 seconds under continuous pulse, average laser use of 8 J. Laser start time 11:09 a.m. February 15, 2022. Laser stop time 11:14 a.m. February 15, 2022. A duplex ultrasound revealed compressibility and flow at the saphenofemoral junction immediately after the procedure. Hemostasis at the access site was achieved. The skin incision of the saphenous vein was closed with a 4 x 4. A compression stocking was applied. Postop instructions were given. A follow up appointment was recommended and scheduled. The patient tolerated the procedure well and was discharged in good condition. CONCLUSION: 1. Technically successful endovenous laser ablation of the right great saphenous vein. Dictated by: Ashish Desir M.D. on 02/15/2022 at 13:09 Approved by: Ashish Desir M.D. on 02/15/2022 at 13:11 [facility] VC COMP CONSULTATIONon 01-26 VC COMP CONSULTATION Patient: AGATA NG Exam Date: 01/26/2022 : 1945 Gender:F Ordering : DR IRIS BREWSTER M.D. Admission #: [id number] Family : Order #: [id number] CLICK HERE TO VIEW EXAM RADIOLOGY REPORT PROCEDURE: VC VEIN CENTER CONSULTATION VEIN CENTER - OFFICE VISIT INITIAL COMPARISON: None. PROGRESS NOTES: 76-year-old female who presents with a 30 year history of lower extremity pain swelling and varicose veins. The patient presented with 2 episodes of thrombophlebitis, an episode several years ago with hard painful veins along the anterior right thigh and a 2nd episode approximately 2 weeks ago. The patient was referred by her primary care physician to radiology where she was determined to have both a superficial as well as an occlusive deep vein thrombus . The patient was started on Eliquis. The patient describes discolored veins, subcutaneous edema, muscle cramps, right greater than left. The patient rates the pain as a 3 on a scale of 1-10. The patient's pain does affect activities of daily living . Patient does get relief from leg elevation, compression stockings and occasional aspirin. 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 The patient denies any signs and symptoms to suggest arterial ischemia. The patient describes a family history significant for varicose veins in her mother. Parkinson's disease in her father. . Her son is a patient at our practice. The patient has never smoked. Occasional social alcohol use. No illicit drug use. No history of pulmonary embolus . Past medical history is significant for right leg pain, lower extremity paresthesias. Surgical history significant for hysterectomy and bilateral oophorectomy. See separate history and physical for medication list. No prior treatment for varicose or spider veins. Intermittent use of compression stockings for many years. Nursing notes were reviewed. After history and physical exam I discussed at length the pathophysiology of venous hypertension and possible treatments, therapies and strategies available. We discussed at length the importance of elevating the lower extremities above the level of the heart, increased physical activity and compression stocking use. We discussed nonsurgical treatment with bilateral thigh-high compression stockings, I did not recommend this in light of her 2 episodes of thrombophlebitis. We discussed surgical interventions including ligation and stripping and phlebectomy. We discussed intravenous laser ablation, micro foam chemical ablation and injection sclerotherapy at length. The patient's questions were answered. Ultrasound venous reflux study performed the same day was discussed at length with the patient. The report demonstrates Moderate to severe bilateral great saphenous vein venous insufficiency. Moderate right anterior accessory saphenous vein venous insufficiency. Mild left small saphenous vein venous insufficiency. Bilateral incompetent dilated perforating veins. Bilateral incompetent branch saphenous tributary/varicose veins. PHYSICAL EXAM: The right leg demonstrates extensive varicose, reticular and spider veins throughout the thigh, knee, lower leg, ankle and foot. Subcutaneous edema of the ankle and foot. Some mild scattered hemosiderin staining. No areas of active ulceration. The left leg demonstrates moderate varicose reticular and spider veins most significant along the lower leg ankle and foot. Mild subcutaneous edema of the ankle and foot. No hemosiderin staining or active ulceration. Both thighs, legs and feet were symmetrically warm to the touch. Good posterior tibial and dorsalis pedis pulses were present bilaterally. IMPRESSION: 1. Moderate to severe bilateral great saphenous vein, moderate right anterior accessory saphenous vein and mild left small saphenous vein venous insufficiency with associated dilatation 2. Extensive incompetent lower extremity branch saphenous tributary/varicose veins. Bilateral incompetent perforating veins 3. Mild bilateral lower extremity subcutaneous edema with hemosiderin staining of the right leg 4. No significant flow significant arterial disease 5. CEAP: C4a, Ep, Asp, Pr PLAN: 1. Endovenous laser ablation rights great saphenous vein followed by left great saphenous vein and possibly right anterior accessory saphenous vein 2. Bilateral micro foam chemical ablation of incompetent branch saphenous tributaries/varicose veins 3. Injection sclerotherapy bilateral reticular and spider veins 4. Long-term use of bilateral thigh-high 20-30 mm compression stockings 5. Elevated legs and increased physical activity for symptomatic relief Nurse notes, history and physical were reviewed and confirmed, see attached forms. The nurse was present throughout the physical exam and consultation Dictated by: Harini Batres MD on 01/26/2022 at 11:37 Approved by: (more content not included)... Normal [facility] VC VENOUS REFLUX NATO LMTon 0 01-26-2022 VC VENOUS REFLUX NATO LMT Patient: AGATA NG Exam Date: 01/26/2022 : 1945 Gender:F Ordering : DR IRIS BREWSTER M.D. Admission #: [id number] Family : DR HARINI BATRES M.D. Order #: [id number] CLICK HERE TO VIEW EXAM RADIOLOGY REPORT PROCEDURE: VEIN CENTER ULTRASOUND VENOUS REFLUX BILATERAL LIMTED COMPARISON: None. INDICATIONS: Pain co-occurrent and due to varicose veins of bilateral legs I83.813 TECHNIQUE: Duplex imaging of the lower extremity to assess the deep and superficial venous system for the presence of deep or superficial venous incompetence and to document the location and severity of disease. The study includes evaluation of the great saphenous vein (GSV), anterior accessory saphenous vein (AASV) and small saphenous vein (SSV). Patient scanned in reverse Trendelenburg and standing. FINDINGS: RIGHT LOWER EXTREMITY: Saphenofemoral Junction Reflux: Yes 13.0mm 1.5 sec GSV: Diam (mm) Reflux/ Time (sec) Proximal Thigh 12.5 Yes 3.5 Mid Thigh 4.7 Yes 0.3 Distal Thigh 6.4 Yes 4.5 Prox Calf 5.2 Yes 0.3 Mid Calf 3.3 Yes 0.4 Saphenopopliteal Junction Reflux: 5.1mm Yes 0.2 SSV: Proximal Calf 2.3 No Mid Calf 2.1 Yes 0.2 AASV: Proximal Thigh 9.6 Yes 0.8 Mid Thigh 7.4 Yes 1.0 Distal Thigh Thrombi: Known deep venous thrombus in two gastroc veins and superficial thrombus in anterior thigh varicose vein. Compressibility: Non-compressible and partially compressible areas associated with thrombus. Flow: Deep venous reflux. Preforator: Mid lower leg 6.0 mm with 1.8s reflux. Mid/post calf 3.7mm with 0.4s reflux. Tech Note: AASV arises from GSV mid/prox thigh and becomes tortuous approximately 5.7 cm from the junction. Incomptent varicose vein associated with quality analyst mid/medial calf measures 5.3 mm with 3.8s reflux. Varicose vein mid posterior calf measures 4.6 mm with 1.7s reflux. Anterior proximal lower leg varicose vein measures 6.8 mm with 0.8s reflux. Varicostiy anterior right knee measures 9.5mm with 3.2s reflux. LEFT LOWER EXTREMITY: Saphenofemoral Junction Reflux: Yes 11.1 mm 1.8 sec GSV: Diam (mm) Reflux/Time (sec) Proximal Thigh 9.1 Yes 0.6 Mid Thigh 4.6 No Distal Thigh 5.1 Yes 1.2 Prox Calf 5.0 Yes 4.0 Mid Calf 4.1 Yes 1.5 Saphenopopliteal Junction Relux: 6.0 mm Yes 2.0 SSV: Proximal Calf 6.4 Yes 0.5 Mid Calf 3.7 Yes 0.9 AASV: Proximal Thigh 3.1 No Mid Thigh Distal Thigh Thrombi: No acute or chronic thrombus. Compressibility: Normal. Flow: Deep venous reflux. 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 Dist/med calf 3.4mm, 0.5s reflux. Mid.med calf 4.0mm, 0.5s reflux Tech Note: Dist/med lower leg varicose vein measures 4.4mm with 2.6s reflux. Varicose vein mid/med thigh measures 3.5 mm with 2.6s reflux. CONCLUSION: 1. Moderate to severe bilateral great saphenous vein venous insufficiency with associated dilatation 2. Moderate right anterior accessory saphenous vein venous insufficiency with associated dilatation 3. Mild left small saphenous vein venous insufficiency with associated dilatation 4. Bilateral dilated incompetent perforating veins 5. 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 US COREY DOP LEG RTon 01-14-20 22 US COREY DOP LEG RT EXAMINATION: US COREY DOP LEG RT HISTORY: Pain in right leg COMPARISON: No relevant comparison available. TECHNIQUE: Grayscale, color and Doppler ultrasound FINDINGS: Region: Right leg Thrombus: 2.4 segment of nonocclusive thrombus identified in a single right gastrocnemius vein, partial the deep system. Echogenic thrombus identified in a large superficial varicose vein extending from the proximal anterior lower leg to the mid thigh Compressibility: Partial noncompressibility corresponding to thrombus Flow: Decreased and absent flow corresponding to thrombus Findings were relayed to the ordering physician by the technologist and documented IMPRESSION: 2.4 cm short segment of occlusive deep vein thrombus in a single right gastrocnemius vein Occlusive thrombus in a superficial varicose vein *Exam performed in accordance with [facility] practice guidelines- Peripheral venous ultrasound, October 10, 2009. Electronically authenticated by: HARINI BATRES Date: 2022-01-13 12:[address] [facility] Vital Signs Date Time Vital Sign Value Performing Clinician Facility 02-14-2024 12:08-0400 Body height 153.67 cm [facility] 02-14-2024 12:08-0400 Body mass index (BMI) [Ratio] 28.8 kg/m2 [facility] 02-14-2024 12:08-0400 Body weight 68.03 kg [facility] 02-14-2024 12:08-0400 Diastolic blood pressure 73 mm[Hg] [facility] 02-14-2024 12:08-0400 Heart rate 92 /min [facility] 02-14-2024 12:08-0400 Systolic blood pressure 103 mm[Hg] [facility] 06-27-2022 14:00-0500 Body height 154.94 cm Caio Brown Other [facility] Other 06-27-2022 14:00-0500 Body mass index (BMI) [Ratio] 27.77 kg/m2 Caio Brown Other [facility] Other 06-27-2022 14:00-0500 Body weight 66.68 kg Caio Brown Other [facility] Other Encounters Encounter Date Encounter Type Care Provider Facility Start: 05-31-2024 End: 05-31-2024 Bamboo flowsheet Prashanth Coombs DO Work Phone: [facility] Start: 05-31-2024 End: 05-31-2024 Bamboo flowsheet Prashanth Coombs DO Work Phone: [facility] Start: 05-31-2024 End: 05-31-2024 Office outpatient new 45 minutes Prashanth Coombs DO Work Phone: [facility] Comment on above: Age-related nuclear cataract of both eyes (Primary Dx) Start: 05-31-2024 End: 05-31-2024 ambulatory PRASHANTH COOMBS Not Available Start: 04-18-2024 End: 04-18-2024 ambulatory [facility] Work Phone: Start: 04-18-2024 End: 04-18-2024 Patient encounter procedure On License Of [facility] Work Phone: Start: 02-14-2024 End: 02-14-2024 ambulatory [facility] Work Phone: Start: 02-14-2024 End: 02-14-2024 Patient encounter procedure On License Of [facility] Work Phone: Start: 05-03-2023 End: 05-03-2023 ambulatory Braxton Griffin Other [facility] Other Start: 05-03-2023 Telephone encounter Braxton Griffin [facility] Start: 01-30-2023 End: 01-30-2023 ambulatory Iris Brewster Other [facility] Other Start: 01-30-2023 Telephone encounter Iris Brewster [facility] Start: 10-20-2022 End: 10-20-2022 ambulatory Iris Brewster Other [facility] Other Start: 10-20-2022 Telephone encounter Iris Brewster [facility] Start: 09-05-2022 End: 09-06-2022 ambulatory FRANK MERCER . Facility:[facility] Start: 08-15-2022 End: 08-16-[address] IRIS BREWSTER Facility:[facility] Start: 07-25-2022 End: 07-26-[address] IRIS BREWSTER Facility:[facility] Start: 07-05-2022 End: 07-06-2022 ambulatory FARNAZ WADSWORTH Facility:[facility] Start: 06-28-2022 End: 06-29-[address] IRIS BREWSTER Facility:[facility] Start: 06-27-2022 End: 06-27-2022 ambulatory Caio Brown Other [facility] Other Start: 06-27-2022 Office outpatient ne w 45 minutes Caio Brown [facility] Start: 06-21-2022 End: 06-22-[address] HARINI BATRES Facility:[facility] Start: 06-21-2022 Adult health examination Braxton Griffin Other [facility] Other Start: 06-14-2022 End: 06-15-[address] HARINI BATRES Facility:[facility] Start: 06-08-2022 End: 06-09-[address] ASHISH DESIR Facility:[facility] Start: 05-31-2022 End: 06-01-[address] HARINI BATRES Facility:[facility] Start: 05-24-2022 End: 05-25-[address] HARINI BATRES Facility:[facility] Start: 05-10-2022 End: 05-11-[address] HARINI BATRES Facility:[facility] Start: 05-03-2022 End: 05-04-[address] HARINI BATRES Facility:[facility] Start: 04-22-2022 End: 04-23-[address] HARINI BATRES Facility:[facility] Start: 04-19-2022 End: 04-20-[address] HARINI BATRES Facility:[facility] Start: 04-04-2022 End: 04-05-[address] HARINI BATRES Facility:[facility] Start: 03-29-2022 End: 03-30-[address] HARINI BATRES Facility:[facility] Start: 03-16-2022 End: 03-17-[address] HARINI BATRES Facility:[facility] Start: 03-08-2022 End: 03-09-[address] HARINI BATRES Facility:[facility] Start: 02-22-2022 End: 02-23-[address] HARINI BATRES Facility:[facility] Start: 02-15-2022 End: 02-16-[address] HARINI BATRES Facility:[facility] Start: 01-26-2022 End: 01-27-[address] IRIS BREWSTER Facility:[facility] Start: 01-13-2022 End: 01-14-[address] IRIS BREWSTER Facility:[facility] Procedures Date Procedure Procedure Detail Performing Clinician Start: 05-31-2024 Oph bmtry prtl coher intrfrmtry io lens pwr ana maria Coombs DO Work Phone: Start: 03-11-2015 Screening mammography B paty Elias Other Plan of Treatment Date Care Activity Detail Author Start: 12-26-2013 Pneumococcal Vaccine : 65+ Years (2 of 2 - PCV) Pneumococcal Vaccine: 65+ Years (2 of 2 - PCV) [facility] Immunizations Immunization Date Immunization Notes Care Provider Sylvia boone 04-18-2024 influenza, high dose seasonal, preservative-free [facility] 09-04-2020 COVID-19 Vaccine Pfi zer - Documentation Purposes Only Braxton Griffin Other [facility] 08-14-2020 COVID-19 Vaccine Mod annie - Documentation Purposes Only Braxton Griffin Other [facility] 04-19-2013 tetanus and diphther ia toxoids, adsorbed, preservative free, for adult use (5 Lf of tetanus toxoid and 2 Lf of diphtheria toxoid) Braxton Griffin Other [facility] 12-26-2012 pneumococcal polysaccharide vaccine, 23 valent Braxton Griffin Other [facility] Payers Date Payer Category Payer Medicaid [employer] MEDICARE A DVANTAGE [id number] 1960 Medicare [id number] 1945 Unknown [id number] 1945 Unknown [id number] 2.16840.1.435717.3.579.2.593 1945 Unknown [id number] 2.16840.1.691183.3.579.2.593 1945 Unknown [id number] 09.01.840.1.730475.3.579.2.593 1945 Unknown [id number] .16840.1.997490.3.579.2.593 1945 Unknown [id number] 2.840.1.899755.3.579.2.593 1945 Unknown [id number] .840.1.995198.3.579.2.593 1944 Unknown [id number] .840.1.389510.3.579.2.593 1944 Unknown [id number] .840.1.057211.3.579.2.593 1944 Unknown [id number] .840.1.954368.3.579.2.593 1944 Unknown [id number] .840.1.796789.3.579.2.593 1944 Unknown [id number] .840.1.362275.3.579.2.593 1944 Unknown [id number] .840.1.247040.3.579.2.593 1944 Unknown [id number] 840.1.596559.3.579.2.593 1944 Unknown [id number] .840.1.881957.3.579.2.593 1944 Unknown [id number] .840.1.398563.3.579.2.593 1944 Unknown [id number] .16840.1.227777.3.579.2.593 1944 Unknown [id number] 2.840.1.245288.3.579.2.593 1944 Unknown [id number] .840.1.306766.3.579.2.593 1944 Unknown [id number] 2.16.840.1.718933.3.579.2.593 1944 Unknown [id number] 2.16.840.1.310522.3.579.2.593 1944 Unknown [id number] 2.16.840.1.604630.3.579.2.593 1945 Unknown [id number] 2.16.840.1.295273.3.579.2.1259 Social History Date Type Detail Facility Start: 05-31-2024 Sex Assigned At N [facility] Other Start: 02-14-2024 Tobacco smoking status IAIS Ex-smoker (finding) [facility] Start: 1945 Sex Assigned At Female [facility] Start: 05-31-2024 Tobacco smoking status [facility] Never smoked tobacco [facility] Start: 05-31-2024 Tobacco use and exposure Smokeless tobacco non-user [facility] Start: 05-31-2024 History of Social function [facility] Start: 1945 Sex assigned at Not on file [facility] History of Present illness Narrative 05-31-2024 Prashanth Coombs DO - 05/31/2024 9:15 AM EST Note Date & Type Note Facility 05-31-2024 History of Presen t illness Narrative Images from the original note were not included. Subjective Patient ID: Agata Ng is a 79 y.o. female. Chief Complaint Cataract HPI Cataract In both eyes. Associated symptoms include blurred vision, glare, haloes, starburst and a need for brighter lights. Severity is moderate. Onset was gradual. Duration of 2. Frequency is intermittent. Context: distance vision, mid-range vision, near vision, reading, watching TV, computer work, driving, night driving and dim lighting. Since onset it is gradually worsening. Affected activities include reading, working on the computer, driving, night driving, watching TV and daily activities. Treatments tried include glasses. Response to treatment was no improvement. Comments Pt was referred by Dr. Thompson for cataract evaluation. No pain, dryness, vision has gradually declined over the past 2 years (near vision is a struggle), seeing occasional floaters, seeing glare with lights, light sensitivity, using OTC drops (systain) PRN. -latex -pm/df -flomax Last edited by TINA Duran on 05/31/2024 9:28 AM. Current Outpatient Medications (Ophthalmic Agents) Medication Sig Dispense Refill ketorolac (Acular) 0.5 % ophthalmic solution Administer 1 drop into affected eye(s) in the morning and 1 drop before bedtime. 5 mL 1 ofloxacin (Ocuflox) 0.3 % ophthalmic solution Administer 1 drop into affected eye(s) 5 (five) times a day for 1 day Starting 1 day before surgery, continue after surgery as directed 5 mL 1 prednisoLONE acetate (Pred-Forte) 1 % ophthalmic suspension Administer 1 drop into affected eye(s) in the morning and 1 drop at noon and 1 drop in the evening and 1 drop before bedtime. Do all this for 14 days. 5 mL 1 No current facility-administered medications for this visit. (Ophthalmic Agents) Current Outpatient Medications (Other) Medication Sig Dispense Refill omeprazole (PriLOSEC) [address] capsule Take 20 mg by mouth Daily No current facility-administered medications for this visit. (Other) Past Medical History: Diagnosis Date Cataract Convergence insufficiency Childhood - wore prism glasses and performed pencil pushups GERD (gastroesophageal reflux disease) H/O blood clots No Known Allergies Review of Systems Constitutional: Negative. HENT: Negative. Eyes: Negative. Respiratory: Negative. Cardiovascular: Negative. Gastrointestinal: Negative. Genitourinary: Negative. Musculoskeletal: Negative. Skin: Negative. Neurological: Negative. Psychiatric/Behavioral: Negative. Hematological: Negative. Endocrine: Negative. Allergic/Immunologic: Negative. Objective Base Eye Exam Visual Acuity (Snellen - Linear) Right Left Dist cc 20/30 -2 20/40 -2 Correction: Glasses Tonometry (Applanation, 10:12 AM) Right Left Pressure 16 16 Pupils Pupils Right PERRL Left PERRL Visual Wheeler Left Right Full Full Extraocular Movement Right Left Full Full Neuro/Psych Oriented x3: Yes Dilation Both eyes: 1.0% Mydriacyl @ 9:32 AM Additional Tests Keratometry K1 Woodacre K2 Woodacre Right 44.00 094 45.25 004 Left 44.25 075 45.50 165 Glare Testing High Right 20/200 Left 20/200 Slit Lamp and Fundus Exam External Exam Right Left External Brow ptosis Brow ptosis Slit Lamp Exam Right Left Lids/Lashes Blepharitis, Dermatochalasis - upper lid, Ptosis Blepharitis, Dermatochalasis - upper lid, Ptosis Conjunctiva/Sclera White and quiet White and quiet Cornea Decreased tear film Decreased tear film Anterior Chamber Deep and quiet Deep and quiet Iris Round and reactive Round and reactive Lens 2+ Nuclear sclerosis, 2+ Cortical cataract, Vacuoles 2+ Nuclear sclerosis, 2+ Cortical cataract, Vacuoles Anterior Vitreous Normal Normal Fundus Exam Right Left Disc Normal Normal Macula Epiretinal membrane Normal Vessels Normal Normal Periphery Normal Normal Refraction Wearing Rx Sphere Cylinder Woodacre Add Right +2.50 -1.75 085 +2.50 Left +2.75 -2.00 081 +2.50 Manifest Refraction (Auto) Sphere Cylinder Woodacre Right +2.75 -2.00 082 Left +3.00 -2.25 076 Final Rx Sphere Cylinder Woodacre Dist VA Right +2.75 -2.00 085 20/30 Left +3.00 -2.25 080 20/30 Expiration Date: 05/31/2025 Assessment/Plan Age-related nuclear cataract of both eyes - Visually Significant Cataract, OU: I discussed the risks, benefits, alternatives, and expectations of cataract surgery. A complete ophthalmic exam was performed and it was determined that the cataracts were a primary source of vision decline, affecting activities of daily living, necessitating removal. Limited vision post-surgery may occur with pre-existing conditions affecting other areas of the eye or the brain was explained and the patient displayed an understanding. The overall objective is to improve ADLs, not eliminate glasses or restore vision to 20/20. Tests were reviewed - the different lens options were explained including the [id number] fees for any upgrades. Intraocular lens (IOL) selection may be altered either prior to or during the procedure based on the doctor's discretion including reverting to a traditional intraocular lens (IOL). They understood that there will exist the potential of glasses prescription need post surgery for near, distance or possibly both. The patient stated a full understanding and a desire to proceed with the procedure. The patient received cataract measurements and had any additional questions answered. - A complete exam was performed including a physical exam: General: AAOx3 and NAD, Lungs: Clear, Heart: RRR, Abdomen: S/NT/ND, Extremities: no pitting edema. - Coordination of care will be shared with Dr. Jeffrey. Cataract Surgery for OS will take place - 06/20 and OD - 07/01. documented in this encounter [facility] Evaluation note 06-27-2022 Note Date & Type Note Facility 06-27-2022 Evaluation note Encounter Date Diagnosis Assessment Notes Jun, Primary osteoarthritis of left knee (ICD-10 - M17.12) Agata presents with left knee DJD. At this juncture we have discussed the findings and diagnosis as well as personally reviewed appropriate imaging and performed interpretation of related testing and examination with the patient in office today. Prior medical notes from Dr. Brewster and history have been reviewed. The patient has been involved in our cooperative treatment plan and agrees to move forward with treatment at this time. Today we have discussed degenerative joint disease of the knee and its treatment. Imaging was discussed and explained to the patient. We discussed recommended conservative therapies including physical therapy, anti-inflammatory medications, and weight loss strategies. We also discussed other treatment options including cortisone injections, Visco supplementation injections which are options for treatment. I have laid out the course of knee DJD including the end-stage treatment of total joint arthroplasty. The patient recognizes and understands our options and goals and we will move forward with our treatment. With her knee swelling and palpable effusion we discussed aspiration which patient would like to try. Under sterile technique patient's left knee was aspirated via the superolateral portal revealing minimal normal-appearing joint fluid and then we injected 4 cc of Marcaine with 1 cc of Kenalog. She tolerated this well. We will see how she does with this. Follow-up as needed The patient is suffering from degenerative arthritis involving the knee. We discussed the conservative treatment options which can be beneficial in relieving pain, including gentle non-impact motion exercise and non-steroidal anti-inflammato ry medication. We discussed the use of occasional cortisone injections that can provide pain relief as well as hyaluronan lubricant injection. Patient was prepped and knee was then aspirated of approximately 0 mls under sterile conditions. Dressing was applied to knee. We performed a 4/1cc lidocaine / kenalog cortisone injection into the knee joint under sterile technique. Patient tolerated the injection well without adverse reaction. Jun, Other See orders for this visit as documented in the electronic medical record. [facility] Other Clinical Note 06-09-2022 Note Date & Type Note Facility 06-09-2022 Note PROCEDURE: XR KNEE L T 4V or > HISTORY: Pain of left knee region ; intermittent posterior knee pain and swelling for 5 weeks COMPARISON: None. FINDINGS: BONES:Marked narrowing of the anterior joint space with suspected [id number] articulation and remodeling of the lateral patellar facet. Moderate sized degenerative osteophytes along the articular margins of the femoral condyles. Mild medial joint space narrowing. No fracture, dislocation, bone lesion. SOFT TISSUES:No visible soft tissue swelling. EFFUSION:Large joint effusion. OTHER: Negative. IMPRESSION: 1. Large joint effusion and suspected marked degenerative changes of the anterior compartment. 2. Mild degenerative changes of the medial compartment. Electronically authenticated by: ASHISH DESIR Date: 2022-06-09 08:[address] [facility] History general Narrative - Reported 03-08-2022 Note Date & Type Note Facility 03-08-2022 History general N arrative - Reported Type Medical History esophageal reflux Surgical History Problem Title : EVLT of Left GSV 03/08/2022, Problem Status : Active, Surgical History Problem Title : EVLT of right GSV 02/15/2022, Problem Status : Active, Surgical History Problem Title : past surgical history reviewed, Problem Description : past surgical history reviewed, Problem Comment : reviewed - no changes required, Problem Status : Active, Surgical History Problem Title : surg ical procedures, hx of, Problem Description : surgical procedures, hx of, Problem Comment : T A H and B S O , Problem Status : Active, Surgical History Problem Title : Vari thena/microfoam chemical ablation left leg 04/19/2022, Problem Status : Active, Surgical History Problem Title : Vari thena/microfoam chemical ablation right leg 03/29/2022, Problem Status : Active, Surgical History Problem Title : Vari thena/microfoam chemical ablation, Problem Comment : 05/03/2022, Problem Status : Active, Attribute Title : In-office, Surgical History Problem Title : Vari thena/microfoam chemical ablation, Problem Comment : 05/03/2022, Problem Status : Active, Attribute Title : Right, [facility] Other Evaluation note Note Date & Type Note Facility Evaluation note No Information [facility] Other Evaluation note Note Date & Type Note Facility Evaluation note No assessment information availa ble [facility] Work Phone: Evaluation note Note Date & Type Note Facility Evaluation note Diagnosis Onset Date Acute embolism and thrombosi s of deep vein of both distal legs acute Gastro-esophageal reflux dis ease without esophagitis acute [facility] Work Phone: Evaluation note Note Date & Type Note Facility Evaluation note Diagnosis Age-related nuclear cataract of both eyes- Primary documented in this encounter [facility] History general Narrative - Reported Note Date & Type Note Facility History general Narrative - Reported Type Medical History esophageal reflux Surgical History hysterectomy Surgical History tonsillectomy Surgical History laser varicose vein procedure [facility] Other History general Narrative - Reported Note Date & Type Note Facility History general Narrative - Reported [facility] Other Summary Purpose Family History Relationship Condition Age at Onset Recorded Date/T myriam father Unknown mother Unknown Advance Directives Advance Directive Response Recorded Date/ Time Advance Directives No February 13 11:35am Chief Complaint and Reason for Visit Chief Complaint med refills Chief Complaint med refills flu shot Reason for Visit Acute embolism and t hrombosis of deep vein of both distal legs Gastro-esophageal reflux disease without esophagitis Additional Source Comments REASON FOR VISIT (unrecogniz ed section and content) Reason Comments Cataract INFORMATION SOURCE (unrecogn ized section and content) DATE CREATED AUTHOR 09/10/2022 [facility] DATE CREATED AUTHOR AUTHOR'S ORGANIZ ATION 06/02/2024 [facility] [employer] Care Teams (unrecognized sec tion and content) Team Status: Active Member Role Status Dates Braxton Griffin DO Primary Care Provider Active Team Status: Inactive Member Role Status Dates Braxton Griffin DO Primary Care Provider Active Start: February 14, 2024 End: February 14, 2024 Iris Brewster MD Attending Provider Active St art: February 14, 2024 End: February 14, 2024 Team Status: Inactive Member Role Status Dates Braxton Griffin , DO Primary Care Provide r, Attending Provider Active Start: April 18, 2024 End: April 18, 2024 Sulfur Burner Relationship Specialty Start Date End Date Iris Brewster MD [address] [place] [id number] PCP - General Family Medicine 05/31/24 Donavan Thompson OD [address] [place] [address] Referring Physician Optometry 05/31/24 Sulfur Burner Relationship Specialty Start Date End Date Iris Brewster MD [address] [place] [address] PCP - General Family Medicine 05/31/24 Donavan Thompson OD [address] [place] [address] Referring Physician Optometry 05/31/24 Goals (unrecognized section and content) Goals may be documented in a n alternate section FOR RECORDS PERTAINING TO PATIENTS WHO ARE OR HAVE BEEN ENROLLED IN A CHEMICAL DEPENDENCY/SUBSTANCEABUSE PROGRAM, SOME INFORMATION MAY BE OMITTED. This clinical summary was aggregated from multiple sources. Caution should be exercised in using it in the provision of clinical care. This summary normalizes information from multiple sources, and as a consequence, information in this document may materially change the coding, format and clinical context of patient data. In addition, data may be omitted in some cases. CLINICAL DECISIONS SHOULD BE BASED ON THE PRIMARY CLINICAL RECORDS. [employer] provides no warranty or guarantee of the accuracy or completeness of information in this document.
== END 2024-06-18 07:24 | disposition home or self-care (01) ==
LOC: PST 07:23
PROVIDERS: Visit Provider Ophthalmology
DX: Z01.818 Encounter for other preprocedural examination (principal); H25.812 Combined forms of age-related cataract, left eye

== ENCOUNTER 2024-06-20 09:34 | Day surgery (SDC) | payer MEDICARE, SELFPAY ==
--- NOTE | 2024-06-20 | OP_ITS ---
OPERATION DATE: 06/20/2024 SURGEON: King Coombs D.O. PREOPERATIVE DIAGNOSIS: Nuclear sclerotic cataract left eye POSTOPERATIVE DIAGNOSIS: Nuclear sclerotic cataract left eye. PROCEDURE NAME: Cataract extraction with intraocular lens placement of the left eye. ANESTHESIA: Topical ESTIMATED BLOOD LOSS: Zero. COMPLICATIONS: None. PROCEDURE: The patient was brought to the Operating Room in supine position. After proper identification, the left eye was prepped and draped in a sterile ophthalmic fashion. A paracentesis was created at the 5 o'clock position. Approximately 1 cc of unpreserved Xylocaine was injected into the anterior chamber followed by Amvisc Plus. Using a 2.6 mm Keratome blade, a clear corneal incision was created at the 2 o'clock limbus. A cystotome was then used to begin a curvilinear capsulorrhexis that was continued for 360 degrees with the Utrata forceps. BSS on a 26 gauge cannula was injected beneath the anterior capsule to hydrodissect as well as hydrodelineate the lens. After ensuring mobility, phacoemulsification was performed in a [id number]-type fashion. After all nuclear material had been removed from the eye, IA was introduced and all residual cortical material was cleaned up. Additional Amvisc Plus was injected into the posterior bag and a lens model [id number], 18.5 diopters was injected and dialed into position. After ensuring centration, IA was re- introduced into the anterior chamber and all residual Amvisc Plus was removed from the eye. BSS on a 30 gauge cannula was injected into the stroma of both the clear corneal incision as well as paracentesis to hydrate the wounds. Additional BSS was injected into the anterior chamber to pressurize the eye at approximately 20 to 22 mmHg by finger tension. 0.1 cc of antibiotic was injected into the anterior chamber, and Weck-Sima sponges were used to check the wounds to be watertight. One drop of apraclonidine and one drop of prednisolone acetate were placed into the eye and a shield was placed over top. The patient was sent to the postoperative area in satisfactory condition to follow up the following day for postoperative care. MELODIE
--- NOTE | 2024-06-20 | HP_ITS ---
PREOPERATIVE HISTORY AND PHYSICAL ? Date:? 06/19/2024 ? HISTORY:? The patient is an 79-year-old white female with complaints of declining vision out of her left eye.? She states that this had started approximately two years ago.? It is constant in nature, gradually worsening and described as star bursts and glare and halos off of headlights.? Also, her distance vision and mid range vision has become affected.? She has difficulty seeing the computer and the television.? ? PAST OCULAR HISTORY:? Denies. ? PAST MEDICAL HISTORY:? Blood clots, GERD, emergence insufficiency and hysterectomy. ? SOCIAL HISTORY:? Denies tobacco, alcohol or recreational drug abuse. ? SYSTEMIC MEDICATIONS:? Include omeprazole. ? ALLERGIES TO MEDICATIONS:? Denied. ? REVIEW OF SYSTEMS:? No pertinent positives. ? PHYSICAL EXAM: ? GENERAL:? In general, she is awake, alert and oriented x3, well developed, well nourished, in no acute distress.? ? HEART:? Regular rate and rhythm. ? LUNGS:? Clear bilaterally. ? ABDOMEN:? Soft, non-tender, non-distended. ? EXTREMITIES:? No pitting edema. ? OPHTHALMIC EXAM:? Revealed a visual acuity of 20/30 -2 in the right and 20/40 -2 in the left that glaring to 20/200 bilaterally.? Pupils motility, muscle balance and confrontational visual ochoa within normal limits bilaterally.? Slit lamp exam revealed blepharitis with a severe decrease in tear film bilaterally.? Conjunctiva, cornea, anterior chamber and iris were within normal limits bilaterally.? Lens status demonstrated 2+ nuclear sclerosis with 2+ cortical changes bilaterally.? ? FUNDUS EXAM:? Revealed good view with good dilation bilaterally.? Optic discs, macula, vessels, periphery and vitreous were within normal limits bilaterally.? ? ASSESSMENT AND PLAN:? Visually significant cataract, left eye.? After the risks, benefits, alternatives as well as expectations were delivered to the patient, she elected to go forward with cataract removal.? She understands the risks to include but not limited to infection, bleeding, loss of vision or loss of the eye itself.? Secondly, she understands that postoperatively she is likely to require spectacle correction for her best visual acuity.? Finally, a complete ophthalmic exam was performed and there was not determined to be any other source of vision decline other than that of cataract.? ? After understanding all risks as well as expectations, she elected to go forward with the procedure listed above and will be doing so in the near future. MELODIE
--- OUTSIDE RECORDS SUMMARY | 2024-06-20 09:53 | XMS_ITS | CCD ---
Author Organization [facility] Care Team Providers Care Vocational Rehabilitation Specialist Name Role Phone Caio Brown Unavailable GISEL, DR HARINI Lee Admitting Unavailable WEST, DR HARINI Lee Attending Unavailable WEST, DR HARINI Lee Consulting Unavailable BREWSTER, DR IRIS Britt Primary Care Unavailable [facility], FARNAZ Malave Attending Unavailable HIGHLANDER, FARNAZ Malave Admitting Unavailable RUSLAN ., FRANK RUGGIERO Attending Unavailable RUSLAN ., FRANK RUGGIERO Admitting Unavailable BREWSTER, DR IRIS Britt Primary [...] IRIS Britt Primary Care Unavailable HIGHLANDER, FARNAZ Malave Attending Unavailable HIGHLANDER, FARNAZ Malave Admitting Unavailable WEST, DR HARINI Lee Admitting Unavailable WEST, DR HARINI Lee Attending Unavailable WEST, DR HARINI Lee Consulting Unavailable ZIEBCONNIE, DR ASHISH Vega Consulting Unavailable [...] Unavailable BREWSTER, DR IRIS Britt Consulting [facility]available [facility] FAR[facility]Z Malave Consulting Unavailable BREWSTER, DR IRIS Britt Primary Care Unavailable [facility], FARNAZ Malave Attending Unavailable [facility] FARNAZ Malave Admitting Unavailable WEST, DR HARINI Lee Admitting Unavailable WEST, DR HARINI Lee Attending Unavailable WEST, DR HARINI Lee Consulting Unavailable [facility], DR TADEO Gonzalez Consulting Unavailable BREWSTER, DR IRIS Britt Primary Care Unavailable [facility], FARNAZ Malave Attending Unavailable [facility], FARNAZ Malave Admitting Unavailable Brewster, Iris Unavailable Braxton Griffin Unavailable PRASHANTH COOMBS Attending Unavailable Iris Brewster MD Primary Care Provider [phone] Jay ODDonavan Unavailable Allergies Allergy Classification Reported Allergen(s) Allergy Type Date of Onset Reaction(s) Facility (1 source) patient allergy list reviewed by nurse or physicia Propensity to adverse reactions 4 Comment:Done [facility] Other (1 source) Allergies Reconciled Propensity to adverse reactions Unknown [facility] Other Medications Current Medications Medication Drug Class(es) [...] as needed for 0 *Pick strength-form from CAPNIA for eRX* Jun, Active ketorolac tromethamine 5 [...] 12:07pm Start: 07-12-2022 take 1 capsule by [facility] once daily Omeprazole 40 MG omeprazole 40mg, [...] times daily for 0 *Pick strength-form from CAPNIA for eRX* May, Active ibuprofen 200 mg [...] purposes. Calculation made for both eyes (OU). [facility] Radiology Study observation (narrative) [facility] VC CONSULT FOLLOWUPon 2021 VC CONSULT FOLLOWUP Patient: AGATA NG Exam Date: 06/21/2022 : 1945 Gender:F Ordering : DR HARINI BATRES M.D. Admission #: [id number] Family : Order #: [id number] CLICK HERE TO VIEW EXAM RADIOLOGY REPORT [...] MD on 06/21/2022 at 14:23 Approved by: Harini Batres MD on 06/21/2022 at 14:52 Normal [facility] VC EXT VENOUS RT LIMITEDon 1 08-22-2021 VC EXT VENOUS RT LIMITED Patient: AGATA NG Exam Date: 06/21/2022 : 1945 Gender:F Ordering : DR HARINI BATRES M.D. Admission #: [id number] Family : Order #: [id number] CLICK HERE TO VIEW EXAM RADIOLOGY REPORT [...] Batres MD on 06/21/2022 at 14:15 Normal [facility] VC INJ FOAM SCLERO W US MLTI on 06-14-2022 VC INJ FOAM SCLERO W US MLTI Patient: AGATA NG Exam Date: 06/14/2022 : 1945 Gender:F Ordering : DR HARINI BATRES M.D. Admission #: [id number] Family : Order #: [id number] CLICK HERE TO VIEW EXAM RADIOLOGY REPORT [...] Desir M.D. on 06/14/2022 at 15:53 Normal [facility] VC CONSULT FOLLOWUPon 2021 VC CONSULT FOLLOWUP Patient: AGATA NG Exam Date: 05/31/2022 : 1945 Gender:F Ordering : DR HARINI BATRES M.D. Admission #: [id number] Family : Order #: [id number] CLICK HERE TO VIEW EXAM RADIOLOGY REPORT [...] Batres MD on 05/31/2022 at 10:46 Normal [facility] VC EXT VENOUS RT LIMITEDon 1 07-31-2021 VC EXT VENOUS RT LIMITED Patient: AGATA NG Exam Date: 05/31/2022 : 1945 Gender:F Ordering : DR HARINI BATRES M.D. Admission #: [id number] Family : Order #: [id number] CLICK HERE TO VIEW EXAM RADIOLOGY REPORT [...] Batres MD on 05/31/2022 at 10:20 Normal [facility] VC INJ FOAM SCLERO W US MLTI on 05-24-2022 VC INJ FOAM SCLERO W US MLTI Patient: AGATA NG Exam Date: 05/24/2022 : 1945 Gender:F Ordering : DR HARINI BATRES M.D. Admission #: [id number] Family : Order #: [id number] CLICK HERE TO VIEW EXAM RADIOLOGY REPORT [...] and (more content not included)... Normal [facility] VC CONSULT FOLLOWUPon 2021 VC CONSULT FOLLOWUP Patient: AGATA NG Exam Date: 05/10/2022 : 1945 Gender:F Ordering : DR HARINI BATRES M.D. Admission #: [id number] Family : Order #: [id number] CLICK HERE [...] Batres MD on 05/10/2022 at 14:04 Normal [facility] VC EXT VENOUS RT LIMITEDon 1 VC EXT VENOUS RT LIMITED Patient: AGATA NG Exam Date: 05/10/2022 : 1945 Gender:F Ordering : DR HARINI BATRES M.D. Admission #: [id number] Family : Order #: [id number] CLICK HERE TO VIEW EXAM RADIOLOGY REPORT [...] Batres MD on 05/10/2022 at 12:53 Normal [facility] VC INJ FOAM SCLERO W US MLTI on 05-03-2022 VC INJ FOAM SCLERO W US MLTI Patient: AGATA NG Exam Date: 05/03/2022 : 1945 Gender:F Ordering : DR HARINI BATRES M.D. Admission #: [id number] Family : Order #: [id number] CLICK HERE TO VIEW EXAM RADIOLOGY REPORT [...] Desir M.D. Anesthesia: None. Indications for Procedure: 78 [...] Desir M.D. on 05/03/2022 at 15:30 Normal [facility] VC CONSULT FOLLOWUPon 2021 VC CONSULT FOLLOWUP Patient: AAGTA NG Exam Date: 04/22/2022 : 1945 Gender:F Ordering : DR HARINI BATRES M.D. Admission #: [id number] Family : Order #: [id number] CLICK HERE TO VIEW EXAM RADIOLOGY REPORT [...] Batres MD on 04/22/2022 at 11:13 Normal [facility] VC EXT VENOUS LT LIMITEDon 1 VC EXT VENOUS LT LIMITED Patient: AGATA NG Exam Date: 04/22/2022 : 1945 Gender:F Ordering : DR HARINI BATRES M.D. Admission #: [id number] Family : Order #: [id number] CLICK HERE TO VIEW EXAM RADIOLOGY REPORT [...] Batres MD on 04/22/2022 at 10:53 Normal [facility] VC INJ FOAM SCLERO W US MLTI on 04-19-2022 VC INJ FOAM SCLERO W US MLTI Patient: AGATA NG Exam Date: 04/19/2022 : 1945 Gender:F Ordering : DR HARINI BATRES M.D. Admission #: [id number] Family : Order #: [id number] CLICK HERE TO VIEW EXAM RADIOLOGY REPORT [...] stockings (more content not included)... Normal [facility] VC CONSULT FOLLOWUPon 2021 VC CONSULT FOLLOWUP Patient: AGATA NG Exam Date: 04/04/2022 : 1945 Gender:F Ordering : DR HARINI BATRES M.D. Admission #: [id number] Family : Order #: [id number] CLICK HERE TO VIEW EXAM RADIOLOGY REPORT [...] Ashish Desir M.D. on 04/04/2022 at 09:36 [facility] VC EXT VENOUS RT LIMITEDon 0 04-04-2022 VC EXT VENOUS RT LIMITED Patient: AGATA NG Exam Date: 04/04/2022 : 1945 Gender:F Ordering : DR HARINI BATRES M.D. Admission #: [id number] Family : Order #: [id number] CLICK HERE TO VIEW EXAM RADIOLOGY REPORT [...] Ashish Desir M.D. on 04/04/2022 at 09:33 [facility] VC INJ FOAM SCLERO W US MLTI on 03-29-2022 VC INJ FOAM SCLERO W US MLTI Patient: AGATA NG Exam Date: 03/29/2022 : 1945 Gender:F Ordering : DR HARINI BATRES M.D. Admission #: [id number] Family : Order #: [id number] CLICK HERE TO VIEW EXAM RADIOLOGY REPORT [...] at the level of the ankle. Incompetent baseball sewer hand vein in the mid calf was occluded [...] exerci (more content not included)... Normal [facility] VC CONSULT FOLLOWUPon 2021 VC CONSULT FOLLOWUP Patient: AGATA NG Exam Date: 03/16/2022 : 1945 Gender:F Ordering : DR HARINI BATRES M.D. Admission #: [id number] Family : Order #: [id number] CLICK HERE TO VIEW EXAM RADIOLOGY REPORT [...] Batres MD on 03/16/2022 at 10:19 Normal [facility] VC EXT VENOUS LT LIMITEDon 0 03-16-2022 VC EXT VENOUS LT LIMITED Patient: AGATA NG Exam Date: 03/16/2022 : 1945 Gender:F Ordering : DR HARINI BATRES M.D. Admission #: [id number] Family : Order #: [id number] CLICK HERE TO VIEW EXAM RADIOLOGY REPORT [...] Batres MD on 03/16/2022 at 09:28 Normal [facility] VC ENDOVENOUS ABL 1ST V LTon 03-08-2022 VC ENDOVENOUS ABL 1ST V LT Patient: AGATA NG Exam Date: 03/08/2022 : 1945 Gender:F Ordering : DR HARINI BATRES M.D. Admission #: [id number] Family : Order #: [id number] CLICK HERE TO VIEW EXAM RADIOLOGY REPORT PROCEDURE: VEIN CENTER ENDOVENOUS ABLATION FIRST VEIN LEFT GREAT SAPHENOUS VEIN COMPARISON: None. INDICATIONS: Pain co-occurrent and due to varicose veins of bilateral legs I83.813 OPERATIVE REPORT: The risks and benefits of the procedure had been previously discussed, and were rediscussed at length. Informed written consent was obtained by me and Chato aJlloh assisted. Time out procedure was performed. The [...] Batres MD on 03/08/2022 at 10:34 Normal [facility] VC CONSULT FOLLOWUPon 2021 VC CONSULT FOLLOWUP Patient: AGATA NG Exam Date: 02/22/2022 : 1945 Gender:F Ordering : DR HARINI BATRES M.D. Admission #: [id number] Family : Order #: [id number] CLICK HERE TO VIEW EXAM RADIOLOGY REPORT [...] Batres MD on 02/22/2022 at 10:06 Normal [facility] VC EXT VENOUS RT LIMITEDon 0 02-22-2022 VC EXT VENOUS RT LIMITED Patient: AGATA NG Exam Date: 02/22/2022 : 1945 Gender:F Ordering : DR HARINI BATRES M.D. Admission #: [id number] Family : Order #: [id number] CLICK HERE TO VIEW EXAM RADIOLOGY REPORT [...] Batres MD on 02/22/2022 at 09:56 Normal [facility] VC ENDOVENOUS ABL 1ST V RTon 02-15-2022 VC ENDOVENOUS ABL 1ST V RT Patient: AGATA NG Exam Date: 02/15/2022 : 1945 Gender:F Ordering : DR HARINI BATRES M.D. Admission #: [id number] Family : Order #: [id number] CLICK HERE TO VIEW EXAM RADIOLOGY REPORT [...] Ashish Desir M.D. on 02/15/2022 at 13:11 [facility] VC COMP CONSULTATIONon 01-26 VC COMP CONSULTATION Patient: AGATA NG Exam Date: 01/26/2022 : 1945 Gender:F Ordering : DR IRIS BREWSTER M.D. Admission #: [id number] Family : Order #: [id number] CLICK HERE TO VIEW EXAM RADIOLOGY REPORT [...] occasional aspirin. 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 The patient denies any signs and [...] by: (more content not included)... Normal [facility] VC VENOUS REFLUX NATO LMTon 0 01-26-2022 VC VENOUS REFLUX NATO LMT Patient: AGATA NG Exam Date: 01/26/2022 : 1945 Gender:F Ordering : DR IRIS BREWSTER M.D. Admission #: [id number] Family : DR HARINI BATRES M.D. Order #: [id number] CLICK HERE TO VIEW EXAM RADIOLOGY REPORT [...] the junction. Incomptent varicose vein associated with baseball sewer hand mid/medial calf measures 5.3 mm with 3.8s [...] thrombus. Compressibility: Normal. Flow: Deep venous reflux. Postbed Stitcher: Dist/med thigh 4.2mm, 3.8s reflux. Dist/med calf [...] Batres MD on 01/26/2022 at 10:56 Normal [facility] US COREY DOP LEG RTon 01-14-20 22 [...] by: HARINI BATRES Date: 2022-01-13 12:30 Normal [facility] Vital Signs Date Time Vital Sign Value Performing Clinician Facility 02-14-2024 12:08-0400 Body height 153.67 cm [facility] 02-14-2024 12:08-0400 Body mass index (BMI) [Ratio] 28.8 kg/m2 [facility] 02-14-2024 12:08-0400 Body weight 68.03 kg [facility] 02-14-2024 12:08-0400 Diastolic blood pressure 73 mm[Hg] [facility] 02-14-2024 12:08-0400 Heart rate 92 /min [facility] 02-14-2024 12:08-0400 Systolic blood pressure 103 mm[Hg] [facility] 06-27-2022 14:00-0500 Body height 154.94 cm Caio Brown Other [facility] Other 06-27-2022 14:00-0500 Body mass index (BMI) [Ratio] 27.77 kg/m2 Caio Brown Other [facility] Other 06-27-2022 14:00-0500 Body weight 66.68 kg Caio Brown Other [facility] Other Encounters Encounter Date Encounter Type Care [...] Not Available Start: 04-18-2024 End: 04-18-2024 ambulatory [facility] Work Phone: Start: 04-18-2024 End: 04-18-2024 Patient encounter procedure [facility] Work Phone: Start: 02-14-2024 End: 02-14-2024 ambulatory [facility] Work Phone: Start: 02-14-2024 End: 02-14-2024 Patient encounter procedure [facility] Work Phone: Start: 05-03-2023 End: 05-03-2023 ambulatory Braxton Griffin Other [facility] Other Start: 05-03-2023 Telephone encounter Braxton Griffin [facility] Start: 01-30-2023 End: 01-30-2023 ambulatory Iris Brewster Other [facility] Other Start: 01-30-2023 Telephone encounter Iris Brewster [facility] Start: 10-20-2022 End: 10-20-2022 ambulatory Iris Brewster Other [facility] Other Start: 10-20-2022 Telephone encounter Iris Brewster [facility] Start: 09-05-2022 End: 09-06-2022 ambulatory FRANK MERCER . Facility:[facility] Start: 08-15-2022 End: 08-16-[address] IRIS BREWSTER Facility:[facility] Start: 07-25-2022 End: 07-26-[address] IRIS BREWSTER Facility:[facility] Start: 07-05-2022 End: 07-06-2022 ambulatory FARNAZ WADSWORTH Facility:[facility] Start: 06-28-2022 End: 06-29-[address] IRIS BREWSTER Facility:[facility] Start: 06-27-2022 End: 06-27-2022 ambulatory Caio Brown Other [facility] Other Start: 06-27-2022 Office outpatient ne w 45 minutes Caio Brown [facility] Start: 06-21-2022 End: 06-22-[address] HARINI BATRES Facility:[facility] Start: 06-21-2022 Adult health examination Braxton Griffin Other [facility] Other Start: 06-14-2022 End: 06-15-[address] [...] boone 04-18-2024 influenza, high dose seasonal, preservative-free [facility] 09-04-2020 COVID-19 Vaccine Pfi zer - Documentation Purposes Only Braxton Griffin Other [facility] 08-14-2020 COVID-19 Vaccine Mod annie - Documentation Purposes Only Braxton Griffin Other [facility] 04-19-2013 tetanus and diphther ia toxoids, adsorbed, preservative free, for adult use (5 Lf of tetanus toxoid and 2 Lf of diphtheria toxoid) Braxton Griffin Other [facility] 12-26-2012 pneumococcal polysaccharide vaccine, 23 valent Braxton Griffin Other [facility] Payers Date Payer Category Payer Medicaid [employer] MEDICARE A DVANTAGE [id number] 1960 Medicare [id number] 1945 Unknown [id number] 2.16840.1.611923.3.579.2.593 1945 Unknown [id number] 2.16840.1.569915.3.579.2.593 1945 Unknown [id number] 2.16840.1.659496.3.579.2.593 1944 Unknown [id number] 09.01.840.1.450613.3.579.2.593 1944 Unknown [id number] .16840.1.222293.3.579.2.593 1944 Unknown [id number] 2.840.1.920283.3.579.2.593 1944 Unknown [id number] .840.1.374372.3.579.2.593 1944 Unknown [id number] .840.1.625347.3.579.2.593 1944 Unknown [id number] .840.1.958853.3.579.2.593 1944 Unknown [id number] .840.1.031630.3.579.2.593 1944 Unknown [id number] .840.1.568235.3.579.2.593 1944 Unknown [id number] .840.1.349360.3.579.2.593 1944 Unknown [id number] .840.1.260945.3.579.2.593 1944 Unknown [id number] 840.1.468688.3.579.2.593 1944 Unknown [id number] .840.1.730435.3.579.2.593 1944 Unknown [id number] .840.1.324770.3.579.2.593 1944 Unknown [id number] .16840.1.626931.3.579.2.593 1944 Unknown [id number] 2.840.1.728360.3.579.2.593 1944 Unknown [id number] .840.1.334194.3.579.2.593 1944 Unknown [id number] 2.16.840.1.815585.3.579.2.593 1944 Unknown [id number] 2.16.840.1.873555.3.579.2.593 1944 Unknown [id number] 2.16.840.1.563461.3.579.2.593 1945 Unknown [id number] 2.16.840.1.289843.3.579.2.1259 Social History Date Type Detail Facility Start: 05-31-2024 Sex Assigned At N [employer] Other Start: 02-14-2024 Tobacco smoking status NMIS Ex-smoker (finding) [facility] Start: 1945 Sex Assigned At Female F [facility] Start: 05-31-2024 Tobacco smoking status [facility] Never smoked tobacco [facility] Start: 05-31-2024 [...] @ 9:32 AM Additional Tests Keratometry K1 [place] K2 [place] Right 44.00 094 45.25 004 Left 44.25 [...] Normal Normal Refraction Wearing Rx Sphere Cylinder [place] Add Right +2.50 -1.75 085 +2.50 Left +2.75 -2.00 081 +2.50 Manifest Refraction (Auto) Sphere Cylinder [place] Right +2.75 -2.00 082 Left +3.00 -2.25 076 Final Rx Sphere Cylinder [place] Dist [facility] Right +2.75 -2.00 085 20/30 [...] different lens options were explained including the gmg-um-nmjapd fees for any upgrades. Intraocular lens (IOL) [...] OD - 07/01. documented in this encounter [facility] Evaluation note 06-27-2022 Note Date & Type [...] as documented in the electronic medical record. [facility] Other Clinical Note 06-09-2022 Note Date & Type Note Facility 06-09-2022 Note PROCEDURE: XR KNEE L T 4V or > HISTORY: Pain of left knee region ; intermittent posterior knee pain and swelling for 5 weeks COMPARISON: None. FINDINGS: BONES:Marked narrowing of the anterior joint space with suspected [id number]-ug-uzmx articulation and remodeling of the lateral patellar [...] authenticated by: ASHISH DESIR Date: 2022-06-09 08:49 [facility] History general Narrative - Reported 03-08-2022 Note [...] Status : Active, Attribute Title : Right, [facility] Other Evaluation note Note Date & Type Note Facility Evaluation note No Information [employer] Other Evaluation note Note Date & Type Note Facility Evaluation note No assessment information availa ble [facility] Work Phone: Evaluation note Note Date & Type Note Facility Evaluation note Diagnosis Onset Date Acute embolism and thrombosi s of deep vein of both distal legs acute Gastro-esophageal reflux dis ease without esophagitis acute [facility] Work Phone: Evaluation note Note Date & Type Note Facility Evaluation note Diagnosis Age-related nuclear cataract of both eyes- Primary documented in this encounter [facility] History general Narrative - Reported Note Date & Type Note Facility History general Narrative - Reported Type Medical History esophageal reflux Surgical History hysterectomy Surgical History tonsillectomy Surgical History laser varicose vein procedure [facility] Other History general Narrative - Reported Note Date & Type Note Facility History general Narrative - Reported [facility] Other Summary Purpose Family History Relationship Condition [...] DATE CREATED AUTHOR AUTHOR'S ORGANIZ ATION 06/02/2024 [facility] EPIC Care Teams (unrecognized sec [...] April 18, 2024 End: April 18, 2024 Vocational Rehabilitation Specialist Relationship Specialty Start Date End Date Iris Brewster MD [address] [place] [id number] PCP - General Family Medicine 05/31/24 Donavan Thompson OD [address] [place] [address] Referring Physician Optometry 05/31/24 Vocational Rehabilitation Specialist Relationship Specialty Start Date End Date Iris Brewster MD [address] [place] [address] PCP - General Family Medicine 05/31/24 Donavan Thompson OD [address] [place] [address] Referring Physician Optometry 05/31/24 Goals (unrecognized section [...] BE BASED ON THE PRIMARY CLINICAL RECORDS. [employer] provides no warranty or guarantee of the accuracy or completeness of information in this document.
[2024-06-20 10:40] VITALS: BP 131/81; PULSE 89; TEMP 36.4; O2SAT 95; BMI 28.9
[2024-06-20] MEDS: CYCLOPENTOLATE HCL 1% OP SOL 40 DROP/2 ML BOTTLE OP ×4 (10:50→11:22)
[2024-06-20] MEDS: BESIFLOXACIN HCL 100 DROP DROPS.SUSP OP ×4 (10:50→11:22)
[2024-06-20] MEDS: PHENYLEPHRINE HCL 2.5% OP SOL 40 DROP/2 ML BOTTLE OP ×4 (10:50→11:22)
[2024-06-20] MEDS: TROPICAMIDE 1% OP SOL 300 DROP/15 ML BOTTLE OP ×4 (10:50→11:21)
[2024-06-20] MEDS: DIAZEPAM 5 MG TABLET PO (10:51)
[2024-06-20] MEDS: PROPARACAINE HCL 0.5% 300 DROP/15 ML BOTTLE OP (12:33)
[2024-06-20] MEDS: LIDOCAINE 2% JELLY 10 ML TOPICAL (12:33)
[2024-06-20] MEDS: BETADINE POVIDONE-IODINE 5% OP SOL 30 ML BOTTLE OP (12:33)
[2024-06-20 12:42] VITALS: BP 138/81; BP 148/81; PULSE 73; O2SAT 100; O2SAT 99
[2024-06-20] MEDS: HYALURONATE SODIUM 16 MG/ML SYRINGE OP (12:42)
[2024-06-20] MEDS: APRACLONIDINE HCL 0.5% SOL 100 DROP/5 ML BOTTLE OP (12:42)
[2024-06-20] MEDS: PHENYLEPHRINE/KETOROLAC 1-0.3% ML VIAL 4 ML IRR (12:43)
[2024-06-20] MEDS: PREDNISOLONE ACETATE OP 1% SUSP 100 DROPS/5 ML 1 DROP OP (12:43)
[2024-06-20] MEDS: LIDOCAINE HCL 1% PF 20 MG/2 ML VIAL INJ (12:43)
[2024-06-20] MEDS: TETRACAINE HCL 0.5% OP SOL 80 DROP/4 ML BOTTLE OP (12:43)
[2024-06-20] MEDS: CEFUROXIME SODIUM 750 MG, 0.9 % SODIUM CHLORIDE 16.3 ML OP (12:44)
== END 2024-06-20 13:00 | disposition home or self-care (01) ==
LOC: SURGOUT 09:37
PROVIDERS: Visit Provider Ophthalmology
PROC: (CPT 66984; principal; 2024-06-20 11:10)
DX: H25.12 Age-related nuclear cataract, left eye (principal); K21.9 Gastro-esophageal reflux disease without esophagitis; Z90.710 Acquired absence of both cervix and uterus
CPT/HCPCS: 66984; J0697; V2630